=== PATIENT | female | born 1955 | race Caucasian/White ===

== ENCOUNTER 2023-04-26 19:03 | Observation (INO) ==
--- NOTE | 2023-04-26 19:12 | ED Triage Note ---
Date of Service April 26, 2023 Provider in Triage Author: Socorro Bloom History of Present Illness This patient was briefly evaluated while in triage. An abbreviated physical exam was performed. This patient is a 67-year-old Female who presents to the ED for evaluation of "My heart rate keeps going up and down on me." States symptoms intermittently for the past 3-4 days. States she notices it when she is sitting doing puzzles. Started oxygen therapy 3 weeks ago. Pt. checking on home pulse-ox. Denies chest pain or SOB Physical Exam VITALS: Vitals are noted on the nurse's note and reviewed by myself. GENERAL: This is a 67 year old female, in no acute distress, nondiaphoretic, well-developed well-nourished. SKIN: No obvious rashes, edema, erythema HEAD: Normocephalic atraumatic. EYES: Conjunctivae without injection, sclerae without icterus. NECK: No JVD. LUNGS: No retractions or accessory muscle use. MUSCULOSKELETAL: Normal gait. NEURO: Patient was alert and oriented to person place and time. No focal neurological deficits. Initial orders for labs and / or imaging were placed and patient was placed in the waiting area until a bed is available. Please see further documentation for the full ED course.
[2023-04-26 19:45] LABS: Basophils # (auto) 0.08 K/uL (0.00-0.20); Basophils % (auto) 0.7 %; Eosinophils # (auto) 0.15 K/uL (0.00-0.50); Eosinophils % (auto) 1.3 %; Hematocrit (blood only) 45.9 % (37.0-47.0); Hemoglobin 14.9 g/dl (12.0-16.0); Immature Granulocytes # (auto) 0.06 K/uL (0.01-0.20); Immature Granulocytes % (auto) 0.5 %; Lymphocytes # (auto) 2.34 K/uL (1.20-3.40); Lymphocytes % (auto) 20.5 %; Mean Corpuscular Hemoglobin 29.9 pg (25.0-34.0); Mean Corpuscular Hgb Conc 32.5 g/dL (32.0-36.0); Mean Platelet Volume 9.5 fL (9.4-12.4); Monocytes # (auto) 0.76 K/uL (0.11-0.59); Monocytes % (auto) 6.7 %; Neutrophils % (auto) 70.3 %; Platelet Count 343 K/uL (130-400); RDW Coefficient of Variation 13.2 % (11.5-14.5); RDW Standard Deviation 44.5 fL (36.4-46.3); Red Blood Count 4.99 M/uL (4.20-5.40); White Blood Count 11.39 K/ul (4.8-10.8)
[2023-04-26 19:56] LABS: Albumin Globulin Ratio 1.2 (0.9-2); Albumin Level 3.8 gm/dl (3.4-5.0); BUN Creatinine Ratio 27.7 (10-20); Bilirubin,Total 0.4 mg/dl (0.2-1.0); Calcium 9.2 mg/dl (8.6-10.3); Creatinine Clr Calc Pharmacy 112.3 ml/min; Est GFR (African American) 119.3 ml/min; Est GFR (Non-African American) 102.9 ml/min; Globulin 3.2 gm/dl (2.5-4.0); Magnesium 1.7 mg/dl (1.7-2.4); Potassium 3.8 mmol/L (3.5-5.1)
[2023-04-26 20:03] LABS: Troponin I High Sensitivity 5.5 pg/ml (0-14)
[2023-04-26 20:07] LABS: INR 0.9 (0.9-1.1); Partial Thromboplastin Time 27 Seconds (21-31); Prothrombin Time 10.3 Seconds (9.0-12.0)
[2023-04-26 20:12] LABS: Thyroid Stimulating Hormone 1.862 uIu/ml (0.300-4.500)
[2023-04-26] MEDS: LORazepam 1 MG/1 ML SYR ED Inj Use IV STA (23:35)
--- NOTE | 2023-04-27 00:28 | Emergency Department Note ---
ED Visit Note I was consulted by the Advanced Practice Provider. I personally made/approved the management plan and take responsibility for the patient management. I performed a substantive portion of the visit. This includes the aspects of: [-History/Physical] [-MDM] .
--- NOTE | 2023-04-27 00:40 | Emergency Department Note ---
History of Present Illness General Chief complaint: Arrhythmia/Palpitations Stated complaint: TACHYCARDIA Time Seen by Provider: 04/26/23 22:03 History of Present Illness This 67-year-old female with COPD chronically on oxygen presents to the ER complaining of palpitations with high and low heart rate for the past few days. She has missed multiple appointments with her other sports coach or instructor. Patient denies chest pain, dyspnea, abdominal pain, fever, chills, flulike illness. She does continue to smoke. She does not want a nicotine patch. Home Medications Medication Instructions Recorded Confirmed Type aspirin 81 mg tablet,delayed 81 mg PO DAILY 04/08/23 04/27/23 History release atorvastatin 20 mg tablet 20 mg PO DAILY 04/08/23 04/27/23 History diltiazem HCl 120 mg 120 mg PO DAILY 04/08/23 04/27/23 History capsule,extended release 24 hr empagliflozin 25 mg tablet 25 mg PO DAILY 04/08/23 04/27/23 History (Jardiance) fluticasone fur. 200 mcg-umeclid 1 inh inhalation QPM 04/08/23 04/27/23 History 62.5 mcg-vilant 25 mcg inhalat.powder (Trelegy Ellipta) fluticasone propionate 50 1 spray intranasal DAILY 04/08/23 04/27/23 History mcg/actuation nasal spray,suspension ipratropium bromide 0.02 % 2.5 ml inhalation Q4H PRN 04/08/23 04/27/23 History solution for inhalation Shortness Of Breath Or Wheezing lisinopril 5 mg tablet 5 mg PO DAILY 04/08/23 04/27/23 History metformin 500 mg tablet,extended 1,000 mg PO BID 04/08/23 04/27/23 History release 24 hr montelukast 10 mg tablet 10 mg PO DAILY 04/08/23 04/27/23 History ipratropium 0.5 mg-albuterol 3 mg 3 ml NEB Q4 PRN Shortness Of 04/27/23 04/27/23 History (2.5 mg base)/3 mL nebulization Breath Or Wheezing soln methylprednisolone 4 mg tablets in 0 mg PO .TAPER UD 04/27/23 04/27/23 History a dose pack Allergies Allergy/AdvReac Type Severity Reaction Status Date / Time No Known Allergies Allergy Mild Verified 04/27/23 00:23 Past Med/Surg History Medical History HLD (hyperlipidemia) Tobacco abuse COPD (chronic obstructive pulmonary disease) T2DM (type 2 diabetes mellitus) Surgical History Hx of cataract extraction Family History Other Diabetes Social History Smoking Status: Current every day smoker Tobacco Type: Cigarettes Second Hand Exposure: No; Do You Dip or Chew Tobacco: No; Hx Alcohol Use: No Hx Substance Use: No Preferred Language: Finnish Communication Ability: Effective 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 Beliefs That Will Affect Care: None marital status: Single Current Living Situation: Family Feels Safe at Home: Yes Assistive Devices: Walker Review of Systems A total of 10 systems reviewed and were otherwise negative Physical Exam Vital Signs Vital Signs - 24 hr 04/26/23 19:10 04/26/23 22:30 04/26/23 22:30 Temperature 36.2 C L Temperature Source Temporal Artery Scan Pulse Rate 97 H Pulse Rate [Apical] 85 Respiratory Rate 20 18 Respiratory Effort / Characteristics Non-Labored Spontaneous Non-Labored Respiratory Depth Normal Normal Respiratory Pattern Regular Blood Pressure 127/82 Blood Pressure [Right Arm] 136/62 Blood Pressure Mean 97 Blood Pressure Mean [Right Arm] 86 Pulse Oximetry 95 95 95 Oxygen Delivery Method Room Air Nasal Cannula Nasal Cannula Oxygen Flow Rate 3 4 Sepsis Recent Fever Within 48 Hours No Sepsis New/Unexplained Change in Mental Status No Sepsis Action Taken by Nursing No Action Required 04/26/23 22:54 Temperature Temperature Source Pulse Rate 88 Pulse Rate [Apical] Respiratory Rate Respiratory Effort / Characteristics Respiratory Depth Respiratory Pattern Blood Pressure Blood Pressure [Right Arm] Blood Pressure Mean Blood Pressure Mean [Right Arm] Pulse Oximetry Oxygen Delivery Method Oxygen Flow Rate Sepsis Recent Fever Within 48 Hours Sepsis New/Unexplained Change in Mental Status Sepsis Action Taken by Nursing VITALS: Vitals are noted on the nurse's note and reviewed by myself. Vital signs stable. GENERAL: Pleasant female chronically on oxygen, in no acute distress, nondiaphoretic, well-developed well-nourished. SKIN: Capillary reflex less than 2 seconds. HEENT: Normocephalic. PERRLA. EOMI. Nares patent. Mucous membranes moist. Neck is supple without nuchal rigidity. HEART: Regular rate and rhythm with frequent PVCs LUNGS: Clear to auscultation bilaterally without wheezes, rales or rhonchi. No retractions or accessory muscle use. ABDOMEN: Positive bowel sounds x 4. Normal tympanic percussion. Soft, nontender, without masses or organomegaly. Abraham sign negative. No guarding or rebound tenderness. no CVA tenderness MUSCULOSKELETAL: No gross musculoskeletal defects. NEURO: Patient was alert and oriented to person place and time. No focal neurological deficits. Course Administered Medications Discontinued Medications Lorazepam (Lorazepam 1 Mg/1 Ml Syr Ed Inj Use) 1 mg IV ONE STA Stop: 04/26/23 23:24 Last Admin: 04/26/23 23:35 Dose: 1 mg Documented By: REAGAN Medical Decision Making Medical Records Attestation: I reviewed the patient's medical records. Home Medications Current Medication List: was personally reviewed by me Laboratory Data Attestation: I reviewed the patient's lab results. 04/26/23 19:20 04/26/23 19:20 Lab Results 04/26/23 04/26/23 Range/Units 19:20 23:07 WBC 11.39 H (4.8-10.8) K/ul RBC 4.99 (4.20-5.40) M/uL Hgb 14.9 (12.0-16.0) g/dl Hct 45.9 (37.0-47.0) % MCV 92.0 (80.0-100.0) fL MCH 29.9 (25.0-34.0) pg MCHC 32.5 (32.0-36.0) g/dL RDW Std Deviation 44.5 (36.4-46.3) fL RDW Coeff of Janel 13.2 (11.5-14.5) % Plt Count 343 (130-400) K/uL MPV 9.5 (9.4-12.4) fL Immature Gran % (Auto) 0.5 % Neut % (Auto) 70.3 % Lymph % (Auto) 20.5 % [place] % (Auto) 6.7 % Eos % (Auto) 1.3 % Baso % (Auto) 0.7 % Neut # (Auto) 8.00 H (1.40-6.50) K/uL Lymph # (Auto) 2.34 (1.20-3.40) K/uL [place] # (Auto) 0.76 H (0.11-0.59) K/uL Eos # (Auto) 0.15 (0.00-0.50) K/uL Baso # (Auto) 0.08 (0.00-0.20) K/uL Immature Gran # (Auto) 0.06 (0.01-0.20) K/uL PT 10.3 (9.0-12.0) Seconds INR 0.9 (0.9-1.1) APTT 27 (21-31) Seconds PTT Ratio 1.0 Sodium 137 (136-145) mmol/L Potassium 3.8 (3.5-5.1) mmol/L Chloride 101 (98-107) mmol/L Carbon Dioxide 30 (21-32) mmol/L Anion Gap 6 (3-11) BUN 13 (6-23) mg/dl Creatinine 0.47 L (0.6-1.2) mg/dl Est Cr Clr Drug Dosing 112.3 ml/min Est GFR ( Amer) 119.3 ml/min Est GFR (Non-Af Amer) 102.9 ml/min BUN/Creatinine Ratio 27.7 H (10-20) Glucose 162 H (70-99(Fasting)) mg/dl Calcium 9.2 (8.6-10.3) mg/dl Magnesium 1.7 (1.7-2.4) mg/dl Total Bilirubin 0.4 (0.2-1.0) mg/dl AST 12 L (13-39) U/L ALT 17 (7-52) U/L Alkaline Phosphatase 73 (34-104) U/L Troponin I High Sens 5.5 6.6 (0-14) pg/ml Total Protein 7.0 (6.0-8.3) gm/dl Albumin 3.8 (3.4-5.0) gm/dl Globulin 3.2 (2.5-4.0) gm/dl Albumin/Globulin Ratio 1.2 (0.9-2) TSH 1.862 (0.300-4.500) uIu/ml Imaging Data Attestation: I personally reviewed and interpreted this imaging study as follows: MDM Narrative Prior records/ancillary studies reviewed. Triage Nursing notes reviewed. Additional history obtained from family. The patient's history was concerning for palpitations. Differential diagnosis: Etiologies such as premature contractions, electrolyte abnormality, cardiac dysrhythmia, thyroid dysfunction, pulmonary embolism, infection, gastrointestinal, as well as others were entertained. Physical examination: Benign as above. ER treatment provided: Patient was observed Ativan was ordered On reassessment the patient felt better. Diagnostic interpretation by me: An order was placed for continuous cardiac monitoring. The monitor shows a rate of 40-1 20 with a sinus rhythm per my interpretation. The electrocardiogram was ordered for palpitaions ECG: Ordered for palpitations EKG: Poor baseline, normal sinus, frequent PVCs, rate of 84. Impression normal sinus rhythm with frequent PVCs poor baseline independently interpreted by myself The labs Independently Interpreted by myself revealed 2 negative troponins Imaging studies: Chest x-ray with no acute consolidation, pneumothorax or free air per my independent or potation Consultation: A consultation was placed with the hospitalist. The case was discussed and diagnostics were reviewed. The patient was evaluated in the ER for further treatment. This appears to be consistent with frequent PVCs with palpitations with bradycardia and tachycardia. Multiple leads were reviewed. No signs of heart block. Patient's heart rate ranged between the 50s up to the 120s. She had frequent bigeminy on the monitor. Patient is agreeable treatment plan of admission. Patient adamantly refuses the CTA for rule out PE. Patient verbalized understanding that without doing the CAT scan I cannot rule out a PE. She verbalized understanding of this. Medicine was consulted and case was discussed. She will be admitted to the medical service for further evaluation and workup. By the evaluation outlined above emergent etiologies such as electrolyte abnormality, thyroid dysfunction infection, as well as others were deemed relatively unlikely. The pt informed about the findings as listed above. All questions were answered and pleased with the treatment. The chart was completed utilizing [employer] Speech voice recognition software. Grammatical errors, random word insertions, pronoun errors, and incomplete sentences are an occassional consequence of this system due to software limitations, ambient noise, and hardware issues. Any formal questions or concerns about the content, text, or information contained within the body of this dictation should be directly addressed to the physician office assistant receptionist for clarification. Impression & Plan Heart palpitations, Frequent PVCs Discharge Plan Visit Data Chief Complaint: Arrhythmia/Palpitations Stated Complaint: TACHYCARDIA ED Provider: Adele Krueger ED Midlevel Provider: Jocelyne Ross Discharge Problem: Heart palpitations, Frequent PVCs Patient Disposition: Admitted As Inpatient Condition: Fair Forms Stand Alone Forms: My [facility] Prescriptions Prescriptions: No Action atorvastatin 20 mg tablet 20 mg PO DAILY diltiazem HCl 120 mg capsule,extended release 24hr 120 mg PO DAILY montelukast 10 mg tablet 10 mg PO DAILY fluticasone propionate 50 mcg/actuation spray,suspension 1 spray INTRANASAL DAILY metformin 500 mg tablet extended release 24 hr 1,000 mg PO BID aspirin 81 mg Tablet,Delayed Release (Dr/Ec) 81 mg PO DAILY lisinopril 5 mg tablet 5 mg PO DAILY Rx Instructions: does not remember taking this anymore/ last filled in september. ipratropium bromide 0.02 % solution 2.5 ml inhalation Q4H PRN (Reason: Shortness Of Breath Or Wheezing) Jardiance 25 mg tablet 25 mg PO DAILY Trelegy Ellipta 200-62.5-25 mcg blister with device 1 inh INHALATION QPM methylprednisolone 4 mg tablets,dose pack 0 mg PO .TAPER UD Rx Instructions: filled 04/20/23 ipratropium-albuterol 0.5 mg-3 mg(2.5 mg base)/3 mL solution for nebulization 3 ml NEB Q4 PRN (Reason: Shortness Of Breath Or Wheezing) Referrals Referrals: Riri England DO [Primary Care Provider] -
--- NOTE | 2023-04-27 01:31 | History & Physical Report ---
Date of Service April 27, 2023 Assessment & Plan (1) Heart palpitations: Plan: 67-year-old female with past med significant for COPD, type 2 diabetes, hyperlipidemia who was recently in the hospital with bilateral pneumonia ,COPD exacerbation influenza A and acute hypoxemic respiratory failure and on discharge requiring 4 L oxygen at rest and 6 L on Exertion comes because of feeling her heart rate is going up and down. She did not feel any dizziness with it. Denies any headache. Has cough. No fevers. Appetite is okay. Currently no chest pain or shortness of breath. No nausea no abdominal pain. Normal bowel and bladder movements. Ambulates okay. Lives with her sister. Heart palpitations States heart rates going up and down EKG shows frequent PVCs Mag is 1.7 will give 1 g of IV magnesium 2 sets of troponin negative We will follow serial enzymes and echo Telemetry monitoring Patient is on diltiazem which will be continued Patient states she does not know what medication she is taking Consult cardiology in a.m. for further recommendations Diabetes Hold home p.o. medications Sliding scale Will monitor Hypertension diltiazem seems not taking lisinopril will monitor History of COPD Continue home inhalers DVT prophylaxis Lovenox Disposition Observation telemetry Full code History of Present Illness Chief Complaint: Asthma/palpitations Primary Care Provider: Riri England DO 67-year-old female with past med significant for COPD, type 2 diabetes, hyperlipidemia who was recently in the hospital with bilateral pneumonia ,COPD exacerbation influenza A and acute hypoxemic respiratory failure and on discharge requiring 4 L oxygen at rest and 6 L on Exertion comes because of feeling her heart rate is going up and down. She did not feel any dizziness with it. Denies any headache. Has cough. No fevers. Appetite is okay. Currently no chest pain or shortness of breath. No nausea no abdominal pain. Normal bowel and bladder movements. Ambulates okay. Lives with her sister. Past medical history. As mentioned above Past surgical history. Cataracts extraction. Family significant for diabetes. Social history. She is cut back on smoking currently smoking 1 cigarette daily. Lives with her sister. Allergies Allergy/AdvReac Type Severity Reaction Status Date / Time No Known Allergies Allergy Mild Verified 04/27/23 00:23 Home Medications Medication Instructions Recorded Confirmed Type aspirin 81 mg tablet,delayed 81 mg PO DAILY 04/08/23 04/27/23 History release atorvastatin 20 mg tablet 20 mg PO DAILY 04/08/23 04/27/23 History diltiazem HCl 120 mg 120 mg PO DAILY 04/08/23 04/27/23 History capsule,extended release 24 hr empagliflozin 25 mg tablet 25 mg PO DAILY 04/08/23 04/27/23 History (Jardiance) fluticasone fur. 200 mcg-umeclid 1 inh inhalation QPM 04/08/23 04/27/23 History 62.5 mcg-vilant 25 mcg inhalat.powder (Trelegy Ellipta) fluticasone propionate 50 1 spray intranasal DAILY 04/08/23 04/27/23 History mcg/actuation nasal spray,suspension ipratropium bromide 0.02 % 2.5 ml inhalation Q4H PRN 04/08/23 04/27/23 History solution for inhalation Shortness Of Breath Or Wheezing lisinopril 5 mg tablet 5 mg PO DAILY 04/08/23 04/27/23 History metformin 500 mg tablet,extended 1,000 mg PO BID 04/08/23 04/27/23 History release 24 hr montelukast 10 mg tablet 10 mg PO DAILY 04/08/23 04/27/23 History ipratropium 0.5 mg-albuterol 3 mg 3 ml NEB Q4 PRN Shortness Of 04/27/23 04/27/23 History (2.5 mg base)/3 mL nebulization Breath Or Wheezing soln methylprednisolone 4 mg tablets in 0 mg PO .TAPER UD 04/27/23 04/27/23 History a dose pack Past Med/Surg History Medical History HLD (hyperlipidemia) Tobacco abuse COPD (chronic obstructive pulmonary disease) T2DM (type 2 diabetes mellitus) Surgical History Hx of cataract extraction Family History Other Diabetes Social History Smoking Status: Current every day smoker Tobacco Type: Cigarettes Second Hand Exposure: Yes; Do You Dip or Chew Tobacco: No; Hx Alcohol Use: No Hx Substance Use: No Preferred Language: Burundian Communication Ability: Effective Tearoom Host/Hostess Required: No Beliefs That Will Affect Care: None marital status: Single Current Living Situation: Family Other Information That Helps Us Care for You: No Feels Safe at Home: Yes Safety Concerns: Feels Safe At This Time Assistive Devices: Denture - Upper and Denture - Lower Review of Systems Review of Systems: All systems reviewed & are unremarkable except as noted in HPI & below Physical Exam Physical Exam: General- Not in acute distress Head- atraumatic Eyes- PERRL. ENT- oropharynx clear Neck- supple, no JVD. Lungs- diminished b/l breath sounds, no wheezing or crackles. Heart- regular rhythm; no murmur, no gallop. Abdomen- normal bowel sounds, soft, nontender, no distension. Extremities- no pretibial edema, no erythema seen. Neuro- alert, oriented PERRL, no facial palsy; no dysarthria; moves extremities. Skin- warm & dry Results & Data Results & Data Vital Signs (Past 12 Hours) Vital Signs Temp Pulse Pulse Resp BP BP Pulse Ox 04/27/23 01:14 80 20 136/75 94 04/26/23 22:54 88 04/26/23 22:30 85 18 136/62 95 04/26/23 22:30 95 04/26/23 19:10 36.2 C L 97 H 20 127/82 95 O2 Del Method O2 Flow Rate 04/27/23 01:14 Nasal Cannula 4 04/26/23 22:54 04/26/23 22:30 Nasal Cannula 4 04/26/23 22:30 Nasal Cannula 3 04/26/23 19:10 Room Air Diagnostic Findings Laboratory Results WBC 11.39 K/ul (4.8-10.8) H 04/26/23 19:20 RBC 4.99 M/uL (4.20-5.40) 04/26/23 19:20 Hgb 14.9 g/dl (12.0-16.0) 04/26/23 19:20 Hct 45.9 % (37.0-47.0) 04/26/23 19:20 MCV 92.0 fL (80.0-100.0) 04/26/23 19:20 MCH 29.9 pg (25.0-34.0) 04/26/23 19:20 MCHC 32.5 g/dL (32.0-36.0) 04/26/23 19:20 RDW Std Deviation 44.5 fL (36.4-46.3) 04/26/23 19:20 RDW Coeff of Janel 13.2 % (11.5-14.5) 04/26/23 19:20 Plt Count 343 K/uL (130-400) 04/26/23 19:20 MPV 9.5 fL (9.4-12.4) 04/26/23 19:20 Immature Gran % (Auto) 0.5 % 04/26/23 19:20 Neut % (Auto) 70.3 % 04/26/23 19:20 Lymph % (Auto) 20.5 % 04/26/23 19:20 [place] % (Auto) 6.7 % 04/26/23 19:20 Eos % (Auto) 1.3 % 04/26/23 19:20 Baso % (Auto) 0.7 % 04/26/23 19:20 Neut # (Auto) 8.00 K/uL (1.40-6.50) H 04/26/23 19:20 Lymph # (Auto) 2.34 K/uL (1.20-3.40) 04/26/23 19:20 Will # (Auto) 0.76 K/uL (0.11-0.59) H 04/26/23 19:20 Eos # (Auto) 0.15 K/uL (0.00-0.50) 04/26/23 19:20 Baso # (Auto) 0.08 K/uL (0.00-0.20) 04/26/23 19:20 Immature Gran # (Auto) 0.06 K/uL (0.01-0.20) 04/26/23 19:20 PT 10.3 Seconds (9.0-12.0) 04/26/23 19:20 INR 0.9 (0.9-1.1) 04/26/23 19:20 APTT 27 Seconds (21-31) 04/26/23 19:20 PTT Ratio 1.0 04/26/23 19:20 Sodium 137 mmol/L (136-145) 04/26/23 19:20 Potassium 3.8 mmol/L (3.5-5.1) 04/26/23 19:20 Chloride 101 mmol/L (98-107) 04/26/23 19:20 Carbon Dioxide 30 mmol/L (21-32) 04/26/23 19:20 Anion Gap 6 (3-11) 04/26/23 19:20 BUN 13 mg/dl (6-23) 04/26/23 19:20 Creatinine 0.47 mg/dl (0.6-1.2) L 04/26/23 19:20 Est Cr Clr Drug Dosing 112.3 ml/min 04/26/23 19:20 Est GFR ( Amer) 119.3 ml/min 04/26/23 19:20 Est GFR (Non-Af Amer) 102.9 ml/min 04/26/23 19:20 BUN/Creatinine Ratio 27.7 (10-20) H 04/26/23 19:20 Glucose 162 mg/dl (70-99(Fasting)) H 04/26/23 19:20 Calcium 9.2 mg/dl (8.6-10.3) 04/26/23 19:20 Magnesium 1.7 mg/dl (1.7-2.4) 04/26/23 19:20 Total Bilirubin 0.4 mg/dl (0.2-1.0) 04/26/23 19:20 AST 12 U/L (13-39) L 04/26/23 19:20 ALT 17 U/L (7-52) 04/26/23 19:20 Alkaline Phosphatase 73 U/L (34-104) 04/26/23 19:20 Troponin I High Sens 6.6 pg/ml (0-14) 04/26/23 23:07 Total Protein 7.0 gm/dl (6.0-8.3) 04/26/23 19:20 Albumin 3.8 gm/dl (3.4-5.0) 04/26/23 19:20 Globulin 3.2 gm/dl (2.5-4.0) 04/26/23 19:20 Albumin/Globulin Ratio 1.2 (0.9-2) 04/26/23 19:20 TSH 1.862 uIu/ml (0.300-4.500) 04/26/23 19:20 ECG Additional Comments: ECG. Sinus rhythm with frequent PVCs with rate of 91. Nonspecific ST abnormalities. Code Status & VTE Plan VTE Prophylaxis Plan VTE Prophylaxis will be ordered: Yes
[2023-04-27] MEDS ORDERED: GLUCAGON FOR INJ 1 MG VIAL SQ PRN (01:36)
[2023-04-27] MEDS ORDERED: GLUCOSE 10 TAB/TUBE PO PRN (01:36)
[2023-04-27] MEDS ORDERED: CARBOHYDRATES FOR HYPOGLYCEMIA PO PRN (01:36)
[2023-04-27] MEDS ORDERED: IPRATROPIUM BROMIDE NEB SOLN 0.02% 0.5MG/2.5ML VIAL INH PRN (01:36)
[2023-04-27] MEDS ORDERED: GLUCOSE 40% GEL 15 GM TUBE PO PRN (01:36)
[2023-04-27] MEDS ORDERED: DEXTROSE 50% 50 ML SYRINGE IV PRN (01:36)
[2023-04-27] MEDS ORDERED: NITROGLYCERIN SL 0.4 MG/TAB TAB SL PRN (01:36)
[2023-04-27] MEDS ORDERED: ALBUT/IPRATROP 3MG/0.5MG NEB 3 ML VIAL NEB PRN (01:36)
[2023-04-27] MEDS: ACETAMINOPHEN 325 MG TAB PO PRN (02:39)
[2023-04-27] MEDS: MAGNESIUM SULFATE / D5W 1 GM/100 ML BAG IV ONE (02:39)
[2023-04-27 06:11] LABS: Basophils # (auto) 0.08 K/uL (0.00-0.20); Basophils % (auto) 0.8 %; Eosinophils # (auto) 0.18 K/uL (0.00-0.50); Eosinophils % (auto) 1.9 %; Hematocrit (blood only) 43.2 % (37.0-47.0); Hemoglobin 13.9 g/dl (12.0-16.0); Immature Granulocytes # (auto) 0.03 K/uL (0.01-0.20); Immature Granulocytes % (auto) 0.3 %; Lymphocytes % (auto) 24.4 %; Mean Corpuscular Hgb Conc 32.2 g/dL (32.0-36.0); Mean Corpuscular Volume 93.1 fL (80.0-100.0); Mean Platelet Volume 9.7 fL (9.4-12.4); Monocytes # (auto) 0.75 K/uL (0.11-0.59); Monocytes % (auto) 7.9 %; Neutrophils % (auto) 64.7 %; Platelet Count 312 K/uL (130-400); RDW Coefficient of Variation 13.1 % (11.5-14.5); RDW Standard Deviation 44.5 fL (36.4-46.3); Red Blood Count 4.64 M/uL (4.20-5.40); White Blood Count 9.44 K/ul (4.8-10.8)
[2023-04-27] MEDS: ENOXAPARIN INJ 40 MG/0.4 ML SYR SQ SCH (06:17)
[2023-04-27] MEDS: INSULIN ASPART PER UNIT CHARGE SC SCH ×2 (06:19→18:01)
[2023-04-27 06:23] LABS: BUN Creatinine Ratio 23.3 (10-20); Calcium 8.9 mg/dl (8.6-10.3); Creatinine Clr Calc Pharmacy 121.4 ml/min; Est GFR (African American) 122.8 ml/min; Magnesium 2.1 mg/dl (1.7-2.4); Potassium 3.7 mmol/L (3.5-5.1)
[2023-04-27 06:29] LABS: Troponin I High Sensitivity 7.1 pg/ml (0-14)
--- NOTE | 2023-04-27 06:57 | XRay Report ---
XR chest 1V portable CLINICAL HISTORY: Dysrhythmia TECHNIQUE: Single frontal radiograph of the chest was obtained. Comparison: Comparison is made to chest radiograph 04/08/2023 FINDINGS: No lines and tubes are seen. Calcified aortic knob is seen. Faint left lower lobe airspace opacity is seen. No evidence of pleural effusion or pneumothorax. IMPRESSION: Faint left lower lung airspace opacity, new from prior exam. This may represent atelectasis, pneumoni a, and/or aspiration. ACT 112: Negative or not required by law. Electronically signed by: Ralph Guzman M.D. 04/27/2023 6:56 AM
[2023-04-27 07:08] LABS: Estimated Average Glucose 194 mg/dl; Hemoglobin A1C 8.4 % (4.5-5.6)
--- NOTE | 2023-04-27 07:59 | Cardiology Consultation ---
Date of Consultation April 27, 2023 Assessment & Plan (1) Frequent PVCs: Plan IMPRESSION: 67 year old female with symptoms concerning for irregular HR and SOB. Frequent PVCs noted on EKG and Tele. Overall improvement in burden with electrolyte replacement. Preliminary read on echo showed a preserved LVEF without WMA. DSE 06/2022 nonischemic. PLAN: Frequent PVCs: Continue diltiazem 120 mg daily Given underlying pulmonary disease will hold off on beta carmen therapy at this time. Recommend maintaining a K goal of 4.0 and mag of 2.0. +20 meq of KCL given this am for a K of 3.7. Add daily mag supplement. Okay to eat from a cardiology standpoint. Consider outpatient zio for assessment of PVC burden. Case discussed with Dr. Garber. Further recommendations pending his assessment/Echo results. I spent a total of 40 minutes on the date of service in preparation, delivery, and documentation of the care provided to the patient excluding any time spent in the performance of separately billed services. FLORENCE Pretty Department of Cardiology, [facility] This chart was completed in part utilizing Speech Voice Recognition Software. Grammatical errors, random word insertions, pronoun errors, and incomplete sente nces are an occasional consequence of this system due to software limitations, ambient noise, and hardware issues. Any formal questions or concerns about the content, text, or information contained within the body of this dictation should be directly addressed to the provider for clarification. Supervising Physician Co-Signing Physician Notes I have reviewed the advance practitioner's documentation, and I agree with, and take responsibility for the plan of care. 67-year-old female presented to the emergency department with palpitations. Telemetry revealing symptomatic premature ventricular complexes. Patient reports "my heart rate was all over the place". Note heart rate ranging from 56 bpm up to 106 bpm. No chest discomfort or heaviness. Reports chronic shortness of breath related to COPD. Wearing continuous oxygen supplementation, 4 L. Admits to occasional cigarette use. Denies orthopnea, PND, or lower extremity edema. PE: VSS. Gen: NAD, AAO x3. Heart: Regular rhythm with occasional ectopy. Normal S1-S2. No murmur. Lungs: Diminished breath sounds with expiratory wheezing bilaterally. Extremities: No edema. A/P: 67-year-old female with symptomatic PVCs. At least moderate PVC burden per review of telemetry. Echocardiogram demonstrates preserved LV systolic function. Symptoms somewhat improved this morning with magnesium supplementation. Recommend titration of diltiazem to 180 mg daily. Patient is not a good candidate for beta-carmen therapy due to severe oxygen dependent COPD with active wheeze. Add daily magnesium supplementation. Repeat basic metabolic panel and magnesium level in approximately 1 week postdischarge. No further inpatient cardiac testing or intervention recommended at this time. Outpatient cardiology follow-up in 4-6 weeks. Consider hall monitor to assess PVC burden at that time. History of Present Illness Reason for Consultation: Palpitations/arrhythmia Requesting Physician: [facility] Attending Physician: Kostas Montes MD History of Present Illness 67-year-old female who presented to [facility] emergency department last evening due to irregular heart rates on her pulse ox and shortness of breath. Recent admission to [facility] from 04/08/2023 to 04/11/2023 due to acute hypoxic respiratory failure secondary to bilateral pneumonia, COPD exacerbation, and influenza A. During hospitalization she was treated with Tamiflu as well as DuoNebs, IV steroids, and antibiotics. She was discharged home on 4-6 L of oxygen. Followed up with [facility] pulmonary medicine on 04/20/2023 feeling well. He presented to [facility] emergency department last evening variable heart rates on her pulse ox while she was checking her O2 due to dyspnea. EKG in the ED showed frequent PVCs. She was asymptomatic and did not have palpitations. Electrolytes were supplemented. Tele: SR with frequent PVCs 80s, venkata noted EKG: SR with PVCs ~0500, SR without PVCs ~0800 Upon entrance into the room patient resting in bed. She remains asymptotic with her PVCs. Telemetry has shown a reduction in overall burden since electrolytes have been supplemented. No chest pain. SOB at baseline- requires supplemental o2 (chronic). No dizziness, syncope or near syncope. No orthopnea, PND, or increased lower extremity edema. No fever, chills, cough, hematochezia, melena, or hemoptysis. Increased appetite- requesting a breakfast tray. Outpatient cardiology medications include: Atorvastatin 20 mg daily Diltiazem 120 mg daily Jardiance 25 mg daily Lisinopril 5 mg daily Aspirin 81 mg daily Primary outpatient liquor merchant: Formerly Dr. Evans, most recently evaluated by Leigh Ann Martin PA-C Past medical history: Hypertension Dyslipidemia Type 2 diabetes Chronic dyspnea with chronic respiratory failure, on supplemental o2 -Nonischemic dobutamine stress echo 06/2022 Chronic tobacco use Allergies Allergy/AdvReac Type Severity Reaction Status Date / Time No Known Allergies Allergy Mild Verified 04/27/23 00:23 Home Medications Medication Instructions Recorded Confirmed Type aspirin 81 mg tablet,delayed 81 mg PO DAILY 04/08/23 04/27/23 History release atorvastatin 20 mg tablet 20 mg PO DAILY 04/08/23 04/27/23 History diltiazem HCl 120 mg 120 mg PO DAILY 04/08/23 04/27/23 History capsule,extended release 24 hr empagliflozin 25 mg tablet 25 mg PO DAILY 04/08/23 04/27/23 History (Jardiance) fluticasone fur. 200 mcg-umeclid 1 inh inhalation QPM 04/08/23 04/27/23 History 62.5 mcg-vilant 25 mcg inhalat.powder (Trelegy Ellipta) fluticasone propionate 50 1 spray intranasal DAILY 04/08/23 04/27/23 History mcg/actuation nasal spray,suspension ipratropium bromide 0.02 % 2.5 ml inhalation Q4H PRN 04/08/23 04/27/23 History solution for inhalation Shortness Of Breath Or Wheezing lisinopril 5 mg tablet 5 mg PO DAILY 04/08/23 04/27/23 History metformin 500 mg tablet,extended 1,000 mg PO BID 04/08/23 04/27/23 History release 24 hr montelukast 10 mg tablet 10 mg PO DAILY 04/08/23 04/27/23 History ipratropium 0.5 mg-albuterol 3 mg 3 ml NEB Q4 PRN Shortness Of 04/27/23 04/27/23 History (2.5 mg base)/3 mL nebulization Breath Or Wheezing soln methylprednisolone 4 mg tablets in 0 mg PO .TAPER UD 04/27/23 04/27/23 History a dose pack Patient History Medical History HLD (hyperlipidemia) Tobacco abuse COPD (chronic obstructive pulmonary disease) T2DM (type 2 diabetes mellitus) Surgical History Hx of cataract extraction Family History Other Diabetes Social History Smoking Status: Current every day smoker Tobacco Type: Cigarettes Second Hand Exposure: Yes; Do You Dip or Chew Tobacco: No; Hx Alcohol Use: No Hx Substance Use: No Preferred Language: Macedonian Communication Ability: Effective Media Aid Required: No Beliefs That Will Affect Care: None marital status: Single Current Living Situation: Family Other Information That Helps Us Care for You: No Feels Safe at Home: Yes Safety Concerns: Feels Safe At This Time Assistive Devices: Denture - Upper and Denture - Lower Review of Systems Review of Systems: All systems reviewed & are unremarkable except as noted in HPI & below Physical Exam Constitutional: WD/WN, vitals as above no acute distress Neck: normal visual inspection and trachea midline Respiratory: normal respiratory effort; no respiratory distress A uscultation: no rales, no rhonchi and no wheezes Cardiovascular: Rate/Rhythm: regular rate and regular rhythm Heart Sounds: normal S2; no murmur Vessels: no JVD Extremities: no edema Gastrointestinal (Abdomen): normal bowel sounds, soft, nontender, no hepatosplenomegaly Skin: no rashes, warm and dry Neurologic: PERRL, EOMI, accommodation nl, no face palsy, no dysarthria Psychiatric: A+Ox3, euthymic affect Results & Data Vital Signs (Past 12 Hours) Vital Signs Temp Pulse Pulse Resp BP Pulse Ox Pulse Ox 04/27/23 06:04 04/27/23 05:34 37.1 C 77 18 155/71 H 94 04/27/23 03:34 95 04/27/23 03:34 79 18 133/76 95 04/27/23 01:28 83 04/27/23 01:14 80 20 136/75 94 04/26/23 22:54 88 04/26/23 22:30 85 18 136/62 95 04/26/23 22:30 95 O2 Del Method O2 Del Method O2 Flow Rate O2 Flow Rate 04/27/23 06:04 Nasal Cannula 4 04/27/23 05:34 Nasal Cannula 4 04/27/23 03:34 Nasal Cannula 4 04/27/23 03:34 Nasal Cannula 4 04/27/23 01:28 04/27/23 01:14 Nasal Cannula 4 04/26/23 22:54 04/26/23 22:30 Nasal Cannula 4 04/26/23 22:30 Nasal Cannula 3 Laboratory Results Cardiac Enzymes 04/26/23 04/26/23 04/27/23 Range/Units 19:20 23:07 05:51 AST 12 L (13-39) U/L Troponin I High Sens 5.5 6.6 7.1 (0-14) pg/ml Coagulation 04/26/23 Range/Units 19:20 PT 10.3 (9.0-12.0) Seconds APTT 27 (21-31) Seconds CBC 04/26/23 04/27/23 Range/Units 19:20 05:51 WBC 11.39 H 9.44 (4.8-10.8) K/ul RBC 4.99 4.64 (4.20-5.40) M/uL Hgb 14.9 13.9 (12.0-16.0) g/dl Hct 45.9 43.2 (37.0-47.0) % Plt Count 343 312 (130-400) K/uL Neut # (Auto) 8.00 H 6.10 (1.40-6.50) K/uL Lymph # (Auto) 2.34 2.30 (1.20-3.40) K/uL [place] # (Auto) 0.76 H 0.75 H (0.11-0.59) K/uL Eos # (Auto) 0.15 0.18 (0.00-0.50) K/uL Baso # (Auto) 0.08 0.08 (0.00-0.20) K/uL Comprehensive Metabolic Panel 04/26/23 04/27/23 Range/Units 19:20 05:51 Sodium 137 139 (136-145) mmol/L Potassium 3.8 3.7 (3.5-5.1) mmol/L Chloride 101 99 (98-107) mmol/L Carbon Dioxide 30 34 H (21-32) mmol/L BUN 13 10 (6-23) mg/dl Creatinine 0.47 L 0.43 L (0.6-1.2) mg/dl Glucose 162 H 165 H (70-99(Fasting)) mg/dl Calcium 9.2 8.9 (8.6-10.3) mg/dl AST 12 L (13-39) U/L ALT 17 (7-52) U/L Alkaline Phosphatase 73 (34-104) U/L Total Protein 7.0 (6.0-8.3) gm/dl Albumin 3.8 (3.4-5.0) gm/dl Intake and Output 04/26/23 04/27/23 04/27/23 22:59 06:59 14:59 Intake Total 100 / 100 Balance 100 / 100 Intake: IV 100 / 100 Magnesium Sulfate / D5w 1 gm In 100 / 100 100 ml @ 50 mls/hr IV ONE ONE Rx#:[id number] Oral 0 / 0 Other: # Unmeasured Voids 0 Weight 69 kg 67.3 kg Weight Measurement Method Built in [facility] Diagnostic Findings Echo 04/27/2023 Finalized report pending* DSE 06/2022 Stress echo negative for inducible ischemia LVEF 55 to 59% No significant valvular disease
[2023-04-27] MEDS: ASPIRIN 81 MG ECTAB PO SCH (08:54)
[2023-04-27] MEDS: ATORVASTATIN 20 MG TAB PO SCH (08:55)
[2023-04-27] MEDS: dilTIAZem HCL 120 MG CAPCR PO SCH (08:55)
[2023-04-27] MEDS: MONTELUKAST SODIUM 10 MG TABLET PO SCH (08:56)
[2023-04-27] MEDS: FLUTICASONE FUROATE 200MCG 14 PUFFS/INHALER INH SCH (08:56)
[2023-04-27] MEDS: FLUTICASONE PROPIONATE NA SPR 16 GM BTL SCH (08:58)
[2023-04-27] MEDS: UMECLIDINIUM/VILANTEROL 62.5/25MCG 7 PUFFS/INHALER INH SCH (08:58)
[2023-04-27] MEDS ORDERED: lisinopril 5 MG TAB PO SCH (09:00)
[2023-04-27] MEDS: NICOTINE 21 MG/24 HR TDSY TD SCH (09:44)
[2023-04-27] MEDS: POTASSIUM CHLORIDE CRTAB 20 MEQ TABCR PO STA (09:44)
[2023-04-27] MEDS: METOPROLOL SUCC 25MG EXT REL TAB PO SCH (11:20)
--- NOTE | 2023-04-27 13:12 | Communication Note ---
Date of Service: April 27, 2023 Patient seen and examined at bedside. She is comfortably lying in the bed; not in distress. She reports episodes of the palpitations since her dischage from her hospitalization. Telemetry shows sinus rhythm with PVCs and PACs. Echo shows EF of 55 to 60% with grade 1 diastolic dysfunction. Cardiology recommends to continue diltiazem 120 mg once daily. On physical examination; Constitutional: AO X3, comfortable, not in any distress Respiratory: occasional wheeze bilaterally Cardiovascular: RRR, no murmur, no edema Vessels: no JVD or carotid bruit Abdomen: normal bowel sounds, soft, nontender, no hepatosplenomegaly Musculoskeletal: no cyanosis or clubbing, extremities motor strength 5/5 Skin: no rashes, warm and dry normal turgor Neurologic: PERRL, EOMI, accommodation nl, no face palsy, no dysarthria CN's II- XI intact bilaterally and moves all extremities Psychiatric: A+Ox3, euthymic affect
--- NOTE | 2023-04-27 14:42 | Electrocardiogram Report ---
Test Reason : Blood Pressure : / mmHG Vent. Rate : 091 BPM Atrial Rate : 091 BPM P-R Int : 138 ms QRS Dur : 092 ms QT Int : 364 ms P-R-T Axes : 068 027 039 degrees QTc Int : 447 ms Sinus rhythm with frequent Premature ventricular complexes Minimal voltage criteria for LVH, may be normal variant Nonspecific ST abnormality Abnormal ECG When compared with ECG of 08-APR-2023 15:37, Premature ventricular complexes are now Present Confirmed by Patrick Polo ([id number]) on 04/27/2023 2:41:45 PM Referred By: REFERRED SELF Confirmed By:Manuel Polo
--- NOTE | 2023-04-27 14:47 | Electrocardiogram Report ---
Test Reason : Blood Pressure : / mmHG Vent. Rate : 075 BPM Atrial Rate : 075 BPM P-R Int : 158 ms QRS Dur : 094 ms QT Int : 400 ms P-R-T Axes : 070 044 080 degrees QTc Int : 446 ms Sinus rhythm with occasional Premature ventricular complexes Otherwise normal ECG When compared with ECG of 26-APR-2023 22:22, (unconfirmed) No significant change was found Confirmed by Patrick Polo ([id number]) on 04/27/2023 2:47:24 PM Referred By: REFERRED SELF Confirmed By:Manuel Polo
--- NOTE | 2023-04-27 14:58 | Electrocardiogram Report ---
Test Reason : Blood Pressure : / mmHG Vent. Rate : 071 BPM Atrial Rate : 071 BPM P-R Int : 152 ms QRS Dur : 100 ms QT Int : 404 ms P-R-T Axes : 075 040 058 degrees QTc Int : 439 ms Normal sinus rhythm Normal ECG When compared with ECG of 27-APR-2023 05:46, (unconfirmed) Premature ventricular complexes are no longer Present Confirmed by Patrick Polo ([id number]) on 04/27/2023 2:58:19 PM Referred By: REFERRED SELF Confirmed By:Manuel Polo
--- NOTE | 2023-04-27 15:04 | Electrocardiogram Report ---
Test Reason : Blood Pressure : / mmHG Vent. Rate : 084 BPM Atrial Rate : 084 BPM P-R Int : 152 ms QRS Dur : 102 ms QT Int : 376 ms P-R-T Axes : 063 020 045 degrees QTc Int : 444 ms Sinus rhythm with frequent Premature ventricular complexes Minimal voltage criteria for LVH, may be normal variant Borderline ECG When compared with ECG of 26-APR-2023 19:18, (unconfirmed) No significant change was found Confirmed by Patrick Polo ([id number]) on 04/27/2023 3:04:10 PM Referred By: REFERRED SELF Confirmed By:Manuel Polo
[2023-04-27] MEDS ORDERED: NON-FORMULARY MEDICATION (Fluticasone-Umeclidin-Vilanter [Trelegy Ellipta] 200-62.5-25 mcg INH SCH (21:00)
[2023-04-27] MEDS: MELATONIN 3 MG TAB PO PRN (22:15)
[2023-04-28] MEDS: MAGNESIUM OXIDE 400 MG TAB PO SCH (08:11)
[2023-04-28] MEDS: dilTIAZem HCL 180 MG CAPCR PO SCH (08:11)
[2023-04-28 09:26] LABS: BUN Creatinine Ratio 28.6 (10-20); Creatinine Clr Calc Pharmacy 106.5 ml/min; Est GFR (African American) 117.7 ml/min; Est GFR (Non-African American) 101.5 ml/min; Magnesium 1.9 mg/dl (1.7-2.4); Potassium 3.9 mmol/L (3.5-5.1)
--- NOTE | 2023-04-28 15:18 | Hospitalist Progress Note ---
Date of Service April 28, 2023 Assessment & Plan (1) Heart palpitations: Plan: 67-year-old female with past med significant for COPD, type 2 diabetes, hyperlipidemia who was recently in the hospital with bilateral pneumonia ,COPD exacerbation influenza A and acute hypoxemic respiratory failure and on discharge requiring 4 L oxygen at rest and 6 L on Exertion comes because of feeling her heart rate is going up and down. She did not feel any dizziness with it. Denies any headache. Has cough. No fevers. Appetite is okay. Currently no chest pain or shortness of breath. No nausea no abdominal pain. Normal bowel and bladder movements. Ambulates okay. Lives with her sister. She is being managed for the following: Palpitations/Freq PVCs States heart rates going up and down, alexandru w/ activity EKG shows frequent PVCs Troponin trends negative, echo with EF of 55 to 60% with grade 1 diastolic dysfunction. Patient not very aware of her home medication regimen. Cardiology evaluated, recommends magnesium supplementation, recommended titration of diltiazem to 180 mg daily. Not a good candidate for beta-carmen therapy due to severe oxygen dependent COPD with active wheeze. Cardiology follow-up in 4 to 6 weeks time. Possible need for eval for personnel monitor at that time. Telemetry monitoring, encourage activitycommunicated with RN. CXR concerning for pneumonia: Patient with baseline cough, no sputum production. No crackles heard during exam. Patient afebrile. Monitor closely for any signs of infection. Repeat chest x-ray in 4 weeks time upon discharge to document resolution of left lower lung airspace opacity. Clinically no pneumonia at present. Diabetes Hold home p.o. medications Sliding scale Will monitor Hypertension: Diltiazem uptitrated. Seems not taking lisinopril, will monitor/decide on resuming lisinopril upon discharge. History of COPD: Continue home inhalers DVT prophylaxis: Lovenox Disposition: Observation telemetry Full code Admission and Anticipated Discharge Date Admission Date: April 27, 2023 Subjective Patient was seen and examined at bedside. Patient was lying in bed, on 4 L oxygen via nasal cannula, NAD, not in any acute distress. Patient reports not moving around much, declines any palpitation in her current situation. Patient advised to ambulate around with assistance from nursing if needed. Communicated with RN to have patient ambulate in the hallway at least 2 times today. PT/OT ordered. Will reevaluate patient in the morning for any recurrence of the symptoms prior to deciding on discharge. Patient otherwise declines other ROS. Physical Exam Physical Exam: General- Not in acute distress Head- atraumatic Eyes- PERRL. ENT- oropharynx clear Neck- supple, no JVD. Lungs- diminished b/l breath sounds, no wheezing or crackles. Heart- regular rhythm; no murmur, no gallop. Abdomen- normal bowel sounds, soft, nontender, no distension. Extremities- no pretibial edema, no erythema seen. Neuro- alert, oriented PERRL, no facial palsy; no dysarthria; moves extremities. Skin- warm & dry Results & Data Results & Data Vital Signs (Past 12 Hours) Vital Signs Temp Pulse Pulse Resp BP Pulse Ox O2 Del Method 04/28/23 10:54 36.4 C L 84 19 147/72 H 92 Nasal Cannula 04/28/23 09:00 Nasal Cannula 04/28/23 08:00 74 04/28/23 07:29 36.5 C 75 19 145/75 H 94 Nasal Cannula O2 Flow Rate 04/28/23 10:54 04/28/23 09:00 4 04/28/23 08:00 04/28/23 07:29
--- NOTE | 2023-04-28 15:50 | Electrocardiogram Report ---
Test Reason : Blood Pressure : / mmHG Vent. Rate : 083 BPM Atrial Rate : 083 BPM P-R Int : 152 ms QRS Dur : 092 ms QT Int : 382 ms P-R-T Axes : 072 023 038 degrees QTc Int : 448 ms Sinus rhythm with frequent Premature ventricular complexes Possible Left atrial enlargement Poor R wave progression, consider anterior DE vs. lead placement vs. LVH Borderline ECG When compared with ECG of 27-APR-2023 08:10, Premature ventricular complexes are now Present Confirmed by Patrick Polo ([id number]) on 04/28/2023 3:50:25 PM Referred By: REFERRED SELF Confirmed By:Manuel Polo
[2023-04-29 06:03] LABS: Hematocrit (blood only) 43.3 % (37.0-47.0); Mean Corpuscular Hemoglobin 30.1 pg (25.0-34.0); Mean Corpuscular Hgb Conc 32.3 g/dL (32.0-36.0); Mean Corpuscular Volume 93.1 fL (80.0-100.0); Mean Platelet Volume 9.6 fL (9.4-12.4); Platelet Count 320 K/uL (130-400); RDW Coefficient of Variation 13.2 % (11.5-14.5); RDW Standard Deviation 45.1 fL (36.4-46.3); Red Blood Count 4.65 M/uL (4.20-5.40); White Blood Count 7.62 K/ul (4.8-10.8)
[2023-04-29 06:18] LABS: BUN Creatinine Ratio 38.1 (10-20); Calcium 8.8 mg/dl (8.6-10.3); Creatinine Clr Calc Pharmacy 123.1 ml/min; Est GFR (African American) 123.8 ml/min; Est GFR (Non-African American) 106.8 ml/min; Magnesium 2.1 mg/dl (1.7-2.4); Phosphorus 4.2 mg/dl (2.5-4.9)
--- NOTE | 2023-04-29 09:46 | Electrocardiogram Report ---
Test Reason : Blood Pressure : / mmHG Vent. Rate : 068 BPM Atrial Rate : 068 BPM P-R Int : 144 ms QRS Dur : 104 ms QT Int : 412 ms P-R-T Axes : -35 021 026 degrees QTc Int : 438 ms Unusual P axis, possible ectopic atrial rhythm Abnormal ECG When compared with ECG of 28-APR-2023 06:36, Ectopic atrial rhythm has replaced Sinus rhythm Confirmed by Patrick Polo ([id number]) on 04/29/2023 9:46:02 AM Referred By: REFERRED SELF Confirmed By:Manuel Polo
--- NOTE | 2023-04-29 13:32 | Discharge Summary ---
Date of Service April 29, 2023 Admission HPI Per Admitting Provider 67-year-old female with past med significant for COPD, type 2 diabetes, hyperlipidemia who was recently in the hospital with bilateral pneumonia ,COPD exacerbation influenza A and acute hypoxemic respiratory failure and on discharge requiring 4 L oxygen at rest and 6 L on Exertion comes because of feeling her heart rate is going up and down. She did not feel any dizziness with it. Denies any headache. Has cough. No fevers. Appetite is okay. Currently no chest pain or shortness of breath. No nausea no abdominal pain. Normal bowel and bladder movements. Ambulates okay. Lives with her sister. Past medical history. As mentioned above Past surgical history. Cataracts extraction. Family significant for diabetes. Social history. She is cut back on smoking currently smoking 1 cigarette daily. Lives with her sister. Admission Exam Per Admitting Provider General- Not in acute distress Head- atraumatic Eyes- PERRL. ENT- oropharynx clear Neck- supple, no JVD. Lungs- diminished b/l breath sounds, no wheezing or crackles. Heart- regular rhythm; no murmur, no gallop. Abdomen- normal bowel sounds, soft, nontender, no distension. Extremities- no pretibial edema, no erythema seen. Neuro- alert, oriented PERRL, no facial palsy; no dysarthria; moves extremities. Skin- warm & dry Principal Diagnosis Palpitations/frequent PVCs Discharge Exam General- Not in acute distress Head- atraumatic Eyes- PERRL. ENT- oropharynx clear Neck- supple, no JVD. Lungs- diminished b/l breath sounds, no wheezing or crackles. Heart- regular rhythm; no murmur, no gallop. Abdomen- normal bowel sounds, soft, nontender, no distension. Extremities- no pretibial edema, no erythema seen. Neuro- alert, oriented PERRL, no facial palsy; no dysarthria; moves extremities. Skin- warm & dry Discharge Data Allergies Allergy/AdvReac Type Severity Reaction Status Date / Time No Known Allergies Allergy Mild Verified 04/27/23 00:23 Consultations 04/26/23 23:44 ED Decision to Admit Stat 04/27/23 08:00 Consult Cardiology Routine Hospital Course (1) Heart palpitations: 67-year-old female with past med significant for COPD, type 2 diabetes, hyperlipidemia who was recently in the hospital with bilateral pneumonia ,COPD exacerbation influenza A and acute hypoxemic respiratory failure and on discharge requiring 4 L oxygen at rest and 6 L on Exertion comes because of feeling her heart rate is going up and down. She did not feel any dizziness with it. Denies any headache. Has cough. No fevers. Appetite is okay. Currently no chest pain or shortness of breath. No nausea no abdominal pain. Normal bowel and bladder movements. Ambulates okay. Lives with her sister. She was managed for the following: Palpitations/Freq PVCs States heart rates going up and down, alexandru w/ activity EKG shows frequent PVCs Troponin trends negative, echo with EF of 55 to 60% with grade 1 diastolic dysfunction. Patient not very aware of her home medication regimen. Cardiology evaluated, recommends magnesium supplementation, recommended titration of diltiazem to 180 mg daily. Not a good candidate for beta-carmen therapy due to severe oxygen dependent COPD with active wheeze. Cardiology follow-up in 4 to 6 weeks time. Possible need for eval for management trainer at that time. Patient was encouraged ambulation, patient declined any palpitation with activity while in hospital. Patient's daughter was given a phone call to have follow-up with cardiology in 4 weeks time. CXR concerning for pneumonia: Patient with baseline cough, no sputum production. No crackles heard during exam. Patient afebrile. Monitor closely for any signs of infection. Repeat chest x-ray in 4 weeks time upon discharge to document resolution of left lower lung airspace opacity. Clinically no pneumonia at present. This could be resolving pneumonia finding in CXR from her recent pneumonia episode. Diabetes Hold home p.o. medications Sliding scale Will monitor Hypertension: Diltiazem uptitrated. Seems not taking lisinopril, will monitor/decide on resuming lisinopril upon discharge. History of COPD: Continue home inhalers DVT prophylaxis: Lovenox Disposition: Observation telemetry Full code Patient is being discharged with following instruction at the point of discharge: Follow-up with your primary care physician within a week time and likely you will need labs CBC/CMP/magnesium/phosphorus. You were evaluated for palpitation, your diltiazem has been increased to 180 mg daily. You will need follow-up with cardiology in about 4 weeks time for further evaluation for need for management trainer at that point in time. Magnesium supplement has been added upon discharge. As discussed with your daughter over the phone, your lisinopril will be decreased to 2.5 mg daily since your diltiazem dose has been increased. Recommend obtaining chest x-ray in about 4 weeks time to document resolution of your left lower lung opacity noted while in the hospital. Take your medications as prescribed. Please make sure that you are able to get your medications today by calling your pharmacy before you leave the hospital so that your treatment continuity is not broken. Home Health Attestation I certify that this patient is under my care and that I, or a physicians program assistant working with me, had a face to-face encounter that meets the home health [id number] encounter requirements with this patient. The encounter with the patient was in whole, or in part, for the following medical condition, which is the primary reason for home health care (list medical condition): I certify that, based on my findings, the following services are medically necessary home health services: My clinical findings support the need for the above services because: Further, I certify that my clinical findings support that this patient is homebound (i.e. absences from home require considerable and taxing effort and are for medical reasons or [employer]ec[employer] services or infrequently or of short durat ion when for other reasons) because: Certification for Home Health Services: Based on the above findings, I certify that this patient is confined to the home and needs intermittent longterm care, physical therapy and/or speech therapy or continues to need occupational therapy. The patient is under my care, and I have initiated the establishment of the plan of care. This patient will be followed by a physician who will periodically review the plan of care. Total Time Total Time Spent Total Time Spent (In Minutes): 45 Discharge Plan Discharge Items Patient Disposition: Home - Self-Care Reason For Visit: ARRYTHMIA/PALPITATIONS Discharge Diagnosis: Palpitations/frequent PVCs Condition on Discharge: Fair Activity: Resume your previous activity Non-emergency contact: Primary Care Provider Call non-emergency contact if: you have any medication questions and your sy mptoms worsen Follow-up/Referrals: Stephanie Parekh CRNP [Nurse Practitioner] - (Date & Time 06/11/2023 3:00 PM Provider Stephanie Parekh CRNP Department Cardiology, [facility] ) Kandace Braxton MD [Outside Practitioners] - (Date & Time 05/03/2023 1:20 PM Provider Kandace Braxton MD Department [facility] ) Diet: Carb Consistent or DM2, Heart Healthy and Low Sodium (2gm) Addtl Attending Provider Instructions: Follow-up with your primary care physician within a week time and likely you will need labs CBC/CMP/magnesium/phosphorus. You were evaluated for palpitation, your diltiazem has been increased to 180 mg daily. You will need follow-up with cardiology in about 4 weeks time for furth er evaluation for need for management trainer at that point in time. Magnesium supplement has been added upon discharge. As discussed with your daughter over the phone, your lisinopril will be decreased to 2.5 mg daily since your diltiazem dose has been increased. Recommend obtaining chest x-ray in about 4 weeks time to document resolution of your left lower lung opacity noted while in the hospital. Take your medications as prescribed. Please make sure that you are able to get your medications today by calling your pharmacy before you leave the hospital so that your treatment continuity is not broken. Pending Studies at Discharge: No Stand-Alone Forms: My [facility], Smoking Cessation Medications and DC Order Prescriptions: New nicotine [Nicoderm CQ] 21 mg/24 hr Patch 24 Hour 21 mg transdermal QAM Qty: 28 0RF diltiazem HCl 180 mg Capsule,Extended Release 24hr 180 mg PO DAILY Qty: 30 0RF magnesium oxide 400 mg (241.3 mg magnesium) Tablet 400 mg PO QAM Qty: 30 0RF Continued atorvastatin 20 mg tablet 20 mg PO DAILY montelukast 10 mg tablet 10 mg PO DAILY fluticasone propionate 50 mcg/actuation spray,suspension 1 spray INTRANASAL DAILY metformin 500 mg tablet extended release 24 hr 1,000 mg PO BID aspirin 81 mg Tablet,Delayed Release (Dr/Ec) 81 mg PO DAILY ipratropium bromide 0.02 % solution 2.5 ml inhalation Q4H PRN (Reason: Shortness Of Breath Or Wheezing) Jardiance 25 mg tablet 25 mg PO DAILY Trelegy Ellipta 200-62.5-25 mcg blister with device 1 inh INHALATION QPM methylprednisolone 4 mg tablets,dose pack 0 mg PO .TAPER UD Rx Instructions: filled 04/20/23 ipratropium-albuterol 0.5 mg-3 mg(2.5 mg base)/3 mL solution for nebulization 3 ml NEB Q4 PRN (Reason: Shortness Of Breath Or Wheezing) Changed lisinopril 5 mg tablet 2.5 mg PO DAILY Qty: 15 0RF Rx Instructions: does not remember taking this anymore/ last filled in september. Discontinued diltiazem HCl 120 mg capsule,extended release 24hr 120 mg PO DAILY Discharge Orders: Discharge Order (Routine); Ordered 04/29/23 Ordered By: Barbie Flores/Other Patient Handouts: Managing Type 2 Diabetes Admission Data Admit Date/Time: 04/27/23 01:22 Attending Provider: Barbie Haider Admit Provider: Gigi Dotson Primary Care Provider: Riri England Other Providers: Jimbo Garber; Gigi Dotson
== END 2023-04-29 14:44 | disposition home or self-care (01) ==
LOC: EDINP 19:03 → ED 19:03 → SUATTDRO 04-27 01:22 → 2S 04-27 01:37

== ENCOUNTER 2024-07-26 14:39 | Inpatient (IN) ==
--- NOTE | 2024-07-26 15:12 | Emergency Department Note ---
Impression & Plan Septicemia Admission ED Provider Note HPI: History obtained from patient. The patient is a 68-year-old female who presents the emergency department with a chief complaint of weakness. Patient was contacted to come back to the hospital after she was here yesterday for a UTI, weakness, her blood cultures were found to have positive growth for gram-negative bacilli in 1 aerobic bottle and therefore she was advised to come back to the ER for admission. Urine culture was positive for E. coli. Patient states she generally feels weak but denies any other focal symptoms on my assessment. On arrival here to the ED the patient is hemodynamically stable, she is saturating well on her 2 L nasal cannula oxygen on my initial assessment. ROS: - Per HPI Differential Diagnosis: Sepsis, UTI, pneumonia, critical electrolyte abnormalities, dehydration/YIFAN, amongst other potential pathologies. *Outpatient medications and allergy history reviewed. PE: General: Alert, frail-appearing, no acute distress HEENT: Normocephalic, trachea midline Eyes: Extraocular eye movement is intact, no scleral erythema Pulmonary: Coarse bilateral breath sounds with mild expiratory wheezing bilaterally and throughout Cardio: Regular rate and rhythm GI: Abdomen is soft to palpation : No suprapubic tenderness MSK: No evidence of trauma or malformation of the extremities, no edema Skin: No evidence of rash Neuro: Alert, no focal deficits Psychiatric: Cooperative INDEPENDENT INTERPRETATIONS: senior data architect: (As interpreted by myself): - An order was placed for continuous cardiac monitoring - Patient was noted to be in sinus rhythm with a rate of 95 EKG: (As interpreted by myself): Rate: 93 Rhythm: Normal sinus rhythm Intervals: Within normal limits ST changes: No ST elevation Time: 1445 Chest x-ray: (As interpreted by myself): No focal infiltrate Interventions provided in ED: - IV fluid bolus, IV cefepime, DuoNeb breathing treatment Medical Decision Making: IV was established and lab work obtained, patient was placed on malter operator. Lab work shows a mild leukopenia at 2.92, hemoglobin is stable at 9.2. Platelet count is normal. CMP shows mild hypokalemia 3.2 which was ordered for oral repletion. Lactic acid is normal. Procalcitonin is low. Troponin is negative x 1. EKG does not show any evidence of any acute ischemic changes per my interpretation. Chest x-ray does not show any evidence of pneumonia, urinalysis does show 1+ leukocyte esterase with significant pyuria. Given that patient's blood culture was positive for Pseudomonas and urine culture was positive for E. coli, patient was in agreement for admission and I did recommend admission. Case was discussed with the on-call hospitalist service for [facility] and the patient was placed for admission to the service of Dr. Montes in stable condition. Consultants/Discussions held with other healthcare providers: - Hospitalist, Dr. Montes Disposition discussion held by myself with: - Patient Diagnosis: 1. UTI, acute 2. Generalized weakness, acute 3. Leukopenia, acute 4. Positive blood culture, acute 5. Positive urine culture, acute Disposition: Admission Marshall Beltre DO Emergency Medicine Past Med/Surg History Problem List (Updated 07/26/24 @ 19:32 by Marshall Beltre DO) Septicemia (Acute) Hypokalemia (Acute) Acute UTI (Acute) GI bleed due to NSAIDs NSAID induced gastritis Reactive thrombocytosis Chronic respiratory failure with hypoxia, on home O2 therapy Hematuria Nicotine dependence with current use Anemia of chronic disease Constipation, chronic Mediastinal mass Metastasis of unknown primary Sepsis Adrenal mass (Acute) Elevated troponin (Acute) GI bleed (Acute) Frequent PVCs (Acute) Heart palpitations (Acute) Hyponatremia Dehydration Influenza A (Acute) COPD exacerbation Acute hypoxic respiratory failure (Acute) T2DM (type 2 diabetes mellitus) Medical History Bilateral pneumonia HLD (hyperlipidemia) Tobacco abuse COPD (chronic obstructive pulmonary disease) Surgical History Hx of cataract extraction Family History Other Diabetes Social History Smoking Status: Current every day smoker Tobacco Type: Cigarettes Cigarettes Per Day: 4; Second Hand Exposure: No; Do You Dip or Chew Tobacco: No; Hx Alcohol Use: No Hx Substance Use: No Preferred Language: Frisian Communication Ability: Effective Lasting Machine Operator Required: No Beliefs That Will Affect Care: None marital status: Single Current Living Situation: Alone Feels Safe at Home: Yes Safety Concerns: Feels Safe At This Time Assistive Devices: Oxygen - Continuous, Walker and Wheelchair Allergies Allergies Allergy/AdvReac Type Severity Reaction Status Date / Time No Known Allergies Allergy Mild Verified 07/19/24 08:31 Home Meds Home Medications Medication Instructions Recorded Confirmed atorvastatin 20 mg tablet 20 mg PO DAILY 04/08/23 07/26/24 fluticasone fur. 200 mcg-umeclid 1 inh inhalation QPM 04/08/23 07/26/24 62.5 mcg-vilant 25 mcg inhalat.powder (Trelegy Ellipta) fluticasone propionate 50 2 spray intranasal QAM 04/08/23 07/26/24 mcg/actuation nasal spray,suspension metformin 500 mg tablet,extended 1,000 mg PO BID 04/08/23 07/26/24 release 24 hr montelukast 10 mg tablet 10 mg PO QAM 04/08/23 07/26/24 ipratropium 0.5 mg-albuterol 3 mg 3 ml NEB Q6H PRN Shortness Of 04/27/23 07/26/24 (2.5 mg base)/3 mL nebulization Breath Or Wheezing soln acetaminophen 650 mg 650 mg PO Q8H PRN Pain 06/21/24 07/26/24 tablet,extended release albuterol sulfate 2.5 mg/3 mL 2.5 mg inhalation Q6H PRN Wheezing 06/21/24 07/26/24 (0.083 %) solution for nebulization albuterol sulfate 90 mcg/actuation 2 puff inhalation Q4H PRN Wheezing 06/21/24 07/26/24 aerosol inhaler dapagliflozin propanediol 10 mg 10 mg PO QAM 06/21/24 07/26/24 tablet (Farxiga) lisinopril 5 mg tablet 5 mg PO DAILY 06/21/24 07/26/24 diltiazem HCl 180 mg 180 mg PO QAM 07/26/24 07/26/24 capsule,extended release 24 hr ferrous sulfate 325 mg (65 mg 325 mg PO QAM 07/26/24 07/26/24 iron) tablet (Feosol) mirtazapine 15 mg tablet 15 mg PO DAILY 07/26/24 07/26/24 olanzapine 2.5 mg tablet 2.5 mg PO UD 07/26/24 07/26/24 ondansetron 8 mg disintegrating 8 mg translingual Q8 PRN Nausea 07/26/24 07/26/24 tablet And Vomiting oxycodone 5 mg tablet 5 mg PO .EVERY 4-6 HOURS PRN Pain 07/26/24 07/26/24 pantoprazole 40 mg tablet,delayed 40 mg PO [facility]HS 07/26/24 07/26/24 release prochlorperazine maleate 10 mg 10 mg PO Q6 PRN Nausea 07/26/24 07/26/24 tablet Previous Rx's Medication Instructions Recorded benzonatate 100 mg capsule 100 mg PO Q6H PRN cough #30 caps 06/24/24 polyethylene glycol 3350 17 gram 17 g PO DAILY #100 ea 06/24/24 oral powder packet (Miralax) cefdinir 300 mg capsule 300 mg PO BID 7 days #14 caps 07/25/24 Results & Data (ED) Vital Signs Vital Signs - 24 hr 07/26/24 14:29 07/26/24 14:29 07/26/24 15:09 Pulse Rate 92 H 86 Pulse Rate [Apical] 92 H Pulse Rhythm Regular Regular Pulse Rhythm [Apical] Regular Pulse Strength Normal Pulse Strength [Apical] Normal Respiratory Rate 24 24 24 Respiratory Effort / Characteristics Non-Labored Spontaneous Non-Labored Spontaneous Respiratory Depth Normal Normal Respiratory Pattern Regular Regular Blood Pressure 119/49 L Blood Pressure [Right Arm] 119/49 L Blood Pressure Mean 72 Blood Pressure Mean [Right Arm] 72 Blood Pressure Position Lying Blood Pressure Position [Right Arm] Sitting Pulse Oximetry 100 100 100 Oxygen Delivery Method Nasal Cannula Nasal Cannula Nasal Cannula Oxygen Flow Rate 3 3 3 Sepsis Recent Fever Within 48 Hours No Sepsis New/Unexplained Change in Mental Status No Sepsis Action Taken by Nursing No Action Required 07/26/24 15:09 07/26/24 15:12 07/26/24 15:25 Pulse Rate 93 H Pulse Rate [Apical] 86 89 Pulse Rhythm Pulse Rhythm [Apical] Regular Regular Pulse Strength Pulse Strength [Apical] Normal Respiratory Rate 21 25 H Respiratory Effort / Characteristics Non-Labored Spontaneous Respiratory Depth Normal Normal Respiratory Pattern Regular Blood Pressure Blood Pressure [Right Arm] 131/58 L 131/58 L Blood Pressure Mean Blood Pressure Mean [Right Arm] 82 82 Blood Pressure Position Blood Pressure Position [Right Arm] Sitting Lying Pulse Oximetry 87 L 100 Oxygen Delivery Method Nasal Cannula Nebulizer Oxygen Flow Rate 3 5 Sepsis Recent Fever Within 48 Hours Sepsis New/Unexplained Change in Mental Status Sepsis Action Taken by Nursing 07/26/24 16:29 Pulse Rate Pulse Rate [Apical] 88 Pulse Rhythm Pulse Rhythm [Apical] Regular Pulse Strength Pulse Strength [Apical] Respiratory Rate 24 Respiratory Effort / Characteristics Labored Respiratory Depth Respiratory Pattern Blood Pressure Blood Pressure [Right Arm] 121/54 L Blood Pressure Mean Blood Pressure Mean [Right Arm] 76 Blood Pressure Position Blood Pressure Position [Right Arm] Lying Pulse Oximetry 99 Oxygen Delivery Method Nasal Cannula Oxygen Flow Rate 3 Sepsis Recent Fever Within 48 Hours Sepsis New/Unexplained Change in Mental Status Sepsis Action Taken by Nursing Laboratory Data 07/26/24 14:55 07/26/24 14:55 Lab Results 07/26/24 07/26/24 Range/Units 14:55 15:27 WBC 2.92 L (4.8-10.8) K/ul RBC 3.38 L (4.20-5.40) M/uL Hgb 9.2 L (12.0-16.0) g/dl Hct 29.7 L (37.0-47.0) % MCV 87.9 (80.0-100.0) fL MCH 27.2 (25.0-34.0) pg MCHC 31.0 L (32.0-36.0) g/dL RDW Std Deviation 52.5 H (36.4-46.3) fL RDW Coeff of Janel 16.3 H (11.5-14.5) % Plt Count 343 (130-400) K/uL MPV 10.5 (9.4-12.4) fL Immature Gran % (Auto) 0.7 % Neut % (Auto) 70.9 % Lymph % (Auto) 21.2 % Stearns % (Auto) 2.4 % Eos % (Auto) 3.4 % Baso % (Auto) 1.4 % Neut # (Auto) 2.07 (1.40-6.50) K/uL Lymph # (Auto) 0.62 L (1.20-3.40) K/uL Stearns # (Auto) 0.07 L (0.11-0.59) K/uL Eos # (Auto) 0.10 (0.00-0.50) K/uL Baso # (Auto) 0.04 (0.00-0.20) K/uL Immature Gran # (Auto) 0.02 (0.01-0.20) K/uL Hyposegmented Neuts 1+ Sodium 138 (136-145) mmol/L Potassium 3.2 L (3.5-5.1) mmol/L Chloride 97 L (98-107) mmol/L Carbon Dioxide 30 (21-32) mmol/L Anion Gap 11 (3-11) BUN 11 (6-23) mg/dl Creatinine 0.57 L (0.6-1.2) mg/dl Est Cr Clr Drug Dosing 82.7 ml/min eGFR 99.54 BUN/Creatinine Ratio 19.3 (10-20) Glucose 118 H (70-99(Fasting)) mg/dl Lactate 1.1 (0.4-2.0) mmol/L Calcium 8.7 (8.6-10.3) mg/dl Magnesium 1.8 (1.7-2.4) mg/dl Total Bilirubin 0.4 (0.2-1.0) mg/dl Direct Bilirubin 0.1 (0-0.2) mg/dl AST 17 (13-39) U/L ALT 9 (7-52) U/L Alkaline Phosphatase 88 (34-104) U/L Troponin I High Sens 6.4 (0-14) pg/ml Total Protein 6.5 (6.0-8.3) gm/dl Albumin 2.9 L (3.4-5.0) gm/dl Procalcitonin 0.11 (0-0.5) ng/ml Administered Medications Sodium Chloride (Nss) 1,000 mls @ 80 mls/hr IV .[id number] [facility] Stop: 07/29/24 18:31 Last Admin: 07/26/24 19:25 Dose: 80 mls/hr Documented By: PNM Potassium Chloride (Potassium Chloride Pwd 20 Meq Pack) 40 meq PO QAM [facility] Stop: 08/25/24 16:29 Last Admin: 07/26/24 17:02 Dose: 40 meq Documented By: SNS Discontinued Medications Albuterol (Albut/Ipratrop 3mg/0.5mg Neb 3 Ml Vial) 3 ml NEB NOW STA; Protocol Stop: 07/26/24 15:11 Last Admin: 07/26/24 15:21 Dose: 3 ml Documented By: SNS Sodium Chloride (Nss) 500 mls @ 999 mls/hr IV .Q31M [facility] Stop: 07/26/24 15:45 Last Infusion: 07/26/24 15:54 Dose: Infused Documented By: Admin: 07/26/24 15:21 Dose: 999 mls/hr Documented By: LAURA Ceftriaxone Sodium (Rocephin) 2,000 mg in 50 mls @ 100 mls/hr IV NOW STA Stop: 07/26/24 15:39 Last Admin: 07/26/24 15:21 Dose: Not Given Documented By: LAURA Cefepime HCl (Maxipime 2000mg) 2,000 mg in 20 mls @ 5 mls/min IV NOW STA; Protocol Stop: 07/26/24 15:16 Last Admin: 07/26/24 15:21 Dose: 5 mls/min Documented By: LAURA Imaging Data Radiologist's Impression: Chest X-Ray 07/26/24 15:09 XR chest 1V portable CLINICAL HISTORY: cough COMPARISON STUDY: 07/25/2024 FINDINGS: Heart size and pulmonary vasculature are normal. No consolidation or pleural effusion seen. No pneumothorax. IMPRESSION: No pneumonia seen. ACT 112: Negative or not required by law. Electronically signed by: Jeremi Ascencio M.D. 07/26/2024 3:48 PM Discharge Plan Visit Data Chief Complaint: Abnormal Labs/Diagnostic Testing ED Provider: Marshall Beltre Discharge Problem: Septicemia Patient Disposition: Admitted As Inpatient Condition: Fair Discharge Instructions Interventions: ED Discharge Assessment Last Done: 07/26/24 17:48
[2024-07-26 15:21] LABS: Hematocrit (blood only) 29.7 % (37.0-47.0); Hemoglobin 9.2 g/dl (12.0-16.0); Mean Corpuscular Hemoglobin 27.2 pg (25.0-34.0); Mean Corpuscular Volume 87.9 fL (80.0-100.0); Mean Platelet Volume 10.5 fL (9.4-12.4); Platelet Count 343 K/uL (130-400); RDW Coefficient of Variation 16.3 % (11.5-14.5); RDW Standard Deviation 52.5 fL (36.4-46.3); Red Blood Count 3.38 M/uL (4.20-5.40); White Blood Count 2.92 K/ul (4.8-10.8)
[2024-07-26] MEDS: ALBUT/IPRATROP 3MG/0.5MG NEB 3 ML VIAL NEB STA (15:21)
[2024-07-26] MEDS: CEFEPIME 2000MG 2,000 MG/20 ML SYR IV STA (15:21)
[2024-07-26] MEDS: cefTRIAXone SODIUM 2,000 MG/50 ML BAG IV STA (15:21)
[2024-07-26] MEDS: SODIUM CHLORIDE 0.9% 500 ML IV SCH (15:21)
[2024-07-26 15:38] LABS: Albumin Level 2.9 gm/dl (3.4-5.0); BUN Creatinine Ratio 19.3 (10-20); Bilirubin Direct 0.1 mg/dl (0-0.2); Bilirubin,Total 0.4 mg/dl (0.2-1.0); Calcium 8.7 mg/dl (8.6-10.3); Creatinine Clr Calc Pharmacy 82.7 ml/min; Magnesium 1.8 mg/dl (1.7-2.4); Potassium 3.2 mmol/L (3.5-5.1); Total Protein 6.5 gm/dl (6.0-8.3)
[2024-07-26 15:45] LABS: Troponin I High Sensitivity 6.4 pg/ml (0-14)
[2024-07-26 15:46] LABS: Basophils # (auto) 0.04 K/uL (0.00-0.20); Basophils % (auto) 1.4 %; Eosinophils % (auto) 3.4 %; Immature Granulocytes # (auto) 0.02 K/uL (0.01-0.20); Immature Granulocytes % (auto) 0.7 %; Lymphocytes # (auto) 0.62 K/uL (1.20-3.40); Lymphocytes % (auto) 21.2 %; Monocytes # (auto) 0.07 K/uL (0.11-0.59); Monocytes % (auto) 2.4 %; Neutrophils # (auto) 2.07 K/uL (1.40-6.50); Neutrophils % (auto) 70.9 %
--- NOTE | 2024-07-26 15:49 | XRay Report ---
XR chest 1V portable CLINICAL HISTORY: cough COMPARISON STUDY: 07/25/2024 FINDINGS: Heart size and pulmonary vasculature are normal. No consolidation or pleural effusion seen. No pneumothorax. IMPRESSION: No pneumonia seen. ACT 112: Negative or not required by law. Electronically signed by: Jeremi Ascencio M.D. 07/26/2024 3:48 PM
--- NOTE | 2024-07-26 16:46 | History & Physical Report ---
Date of Service July 26, 2024 History of Present Illness Primary Care Provider: Kandace Braxton MD Allergies Allergy/AdvReac Type Severity Reaction Status Date / Time No Known Allergies Allergy Mild Verified 07/19/24 08:31 Home Medications Medication Instructions Recorded Confirmed Type atorvastatin 20 mg tablet 20 mg PO DAILY 04/08/23 07/26/24 History fluticasone fur. 200 mcg-umeclid 1 inh inhalation QPM 04/08/23 07/26/24 History 62.5 mcg-vilant 25 mcg inhalat.powder (Trelegy Ellipta) fluticasone propionate 50 2 spray intranasal DAILY 04/08/23 07/19/24 History mcg/actuation nasal spray,suspension metformin 500 mg tablet,extended 1,000 mg PO BID 04/08/23 07/26/24 History release 24 hr montelukast 10 mg tablet 10 mg PO QAM 04/08/23 07/19/24 History ipratropium 0.5 mg-albuterol 3 mg 3 ml NEB Q6H PRN Shortness Of 04/27/23 07/19/24 History (2.5 mg base)/3 mL nebulization Breath Or Wheezing soln diltiazem HCl 180 mg 180 mg PO DAILY #30 caps 04/29/23 07/26/24 Rx capsule,extended release 24 hr acetaminophen 650 mg 650 mg PO Q8H PRN Pain 06/21/24 07/26/24 History tablet,extended release albuterol sulfate 2.5 mg/3 mL 2.5 mg inhalation Q6H PRN Wheezing 06/21/24 07/26/24 History (0.083 %) solution for nebulization albuterol sulfate 90 mcg/actuation 2 puff inhalation Q4H PRN Wheezing 06/21/24 07/26/24 History aerosol inhaler bupropion HCl 150 mg 24 hr tablet, 150 mg PO QAM 06/21/24 07/19/24 History extended release (Wellbutrin XL) dapagliflozin propanediol 10 mg 10 mg PO QAM 06/21/24 07/26/24 History tablet (Farxiga) lisinopril 5 mg tablet 5 mg PO DAILY 06/21/24 07/19/24 History azithromycin 250 mg tablet 250 mg PO HS #2 tabs 06/24/24 07/19/24 Rx benzonatate 100 mg capsule 100 mg PO Q6H PRN cough #30 caps 06/24/24 07/19/24 Rx ferrous sulfate 325 mg (65 mg 325 mg PO DAILY #30 tabs 06/24/24 07/19/24 Rx iron) tablet (Feosol) guaifenesin 400 mg tablet 400 mg PO TID #90 tabs 06/24/24 07/19/24 Rx nicotine 7 mg/24 hr daily 1 patch transdermal DAILY #14 ea 06/24/24 07/19/24 Rx transdermal patch pantoprazole 40 mg tablet,delayed 40 mg PO BID #30 tabs 06/24/24 07/19/24 Rx release polyethylene glycol 3350 17 gram 17 g PO DAILY #100 ea 06/24/24 07/26/24 Rx oral powder packet (Miralax) cefdinir 300 mg capsule 300 mg PO BID 7 days #14 caps 07/25/24 07/26/24 Rx mirtazapine 15 mg tablet 15 mg PO DAILY 07/26/24 07/26/24 History olanzapine 2.5 mg tablet 2.5 mg PO UD 07/26/24 07/26/24 History ondansetron 8 mg disintegrating 8 mg translingual Q8 PRN Nausea 07/26/24 07/26/24 History tablet And Vomiting oxycodone 5 mg tablet 5 mg PO .EVERY 4-6 HOURS PRN Pain 07/26/24 07/26/24 History prochlorperazine maleate 10 mg 10 mg PO Q6 PRN Nausea 07/26/24 07/26/24 History tablet Past Med/Surg History Problem List (Updated 07/25/24 @ 18:38 by Satya Rowell MD) Hypokalemia (Acute) Acute UTI (Acute) GI bleed due to NSAIDs NSAID induced gastritis Reactive thrombocytosis Chronic respiratory failure with hypoxia, on home O2 therapy Hematuria Nicotine dependence with current use Anemia of chronic disease Constipation, chronic Mediastinal mass Metastasis of unknown primary Sepsis Adrenal mass (Acute) Elevated troponin (Acute) GI bleed (Acute) Frequent PVCs (Acute) Heart palpitations (Acute) Hyponatremia Dehydration Influenza A (Acute) COPD exacerbation Acute hypoxic respiratory failure (Acute) T2DM (type 2 diabetes mellitus) Medical History Bilateral pneumonia HLD (hyperlipidemia) Tobacco abuse COPD (chronic obstructive pulmonary disease) Surgical History Hx of cataract extraction Family History Other Diabetes Social History Smoking Status: Current every day smoker Tobacco Type: Cigarettes Cigarettes Per Day: 4; Second Hand Exposure: No; Do You Dip or Chew Tobacco: No; Hx Alcohol Use: No Hx Substance Use: No Preferred Language: Swedish Communication Ability: Effective 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 Beliefs That Will Affect Care: None marital status: Single Current Living Situation: Spouse Feels Safe at Home: Yes Assistive Devices: Cane, CPAP, Oxygen - Continuous and Walker Results & Data Results & Data Vital Signs (Past 12 Hours) Vital Signs Pulse Pulse Resp BP BP Pulse Ox O2 Del Method 07/26/24 15:25 89 25 H 131/58 L 100 Nebulizer 07/26/24 15:12 93 H 07/26/24 15:09 86 21 131/58 L 87 L Nasal Cannula 07/26/24 15:09 86 24 100 Nasal Cannula 07/26/24 14:29 92 H 24 119/49 L 100 Nasal Cannula 07/26/24 14:29 92 H 24 119/49 L 100 Nasal Cannula O2 Flow Rate 07/26/24 15:25 5 07/26/24 15:12 07/26/24 15:09 3 07/26/24 15:09 3 07/26/24 14:29 3 07/26/24 14:29 3
[2024-07-26] MEDS: POTASSIUM CHLORIDE PWD 20 MEQ PACK PO SCH (17:02)
[2024-07-26 17:26] LABS: Appearance Urine Clear (Clear); Bacteria Urine Automated None Seen (None Seen); Bilirubin Urine Negative (Negative); Blood Urine Negative (Negative); Color Urine Yellow; Glucose Urine UA 3+ (Negative); Ketones Urine 1+ (Negative); Leukocyte Esterase Urine 1+ (Negative); Nitrite Urine Negative (Negative); Protein Urine 1+ (Negative); RBC Urine Automated 0-2 /hpf (0-2); Specific Gravity Urine 1.021 (1.000-1.030); Urobilinogen Urine Negative (Negative); WBC Urine Automated >50 /hpf (0-5); pH Urine 5.5 (4.5-7.5)
--- NOTE | 2024-07-26 17:36 | History & Physical Report ---
Date of Service July 26, 2024 Assessment & Plan (1) Acute UTI: (2) Chronic respiratory failure with hypoxia, on home O2 therapy: (3) Sepsis: Plan Assessment/plan Gram-negative bacteremia Sepsis POA Patient presented to the hospital with generalized weakness, burning micturition Urinalysis positive of infection; urine culture positive for E. coli 1 out of 4 blood culture on 07/25 positive for gram-negative bacilli; PCR positive for Pseudomonas aeruginosa Started on cefepime at 2 g every 8 hours; follow-up on final culture and sensitivity Will consult infectious disease Repeat blood culture pending Hypokalemiacontinue potassium supplement daily Leukopenia likely secondary to chemotherapycontinue CBC monitoring daily. COPD on chronic oxygen-will place her on DuoNeb every 6 given mild bilateral wheeze, Hypertensioncontinue on home meds Hyperlipidemiacontinue on home med Type 2 diabetes mellituscontinue on insulin history of PVCscontinue on Cardizem Full code DVT prophylaxis heparin Time spent evaluating patient, direct bedside care, chart review, placing orders, interpretation of diagnostic studies, discussion with consultants, patient, and family members, as well as other required patient management activities is 75 minutes Please note the above document was generated using voice recognition software. It may contain grammatical, syntax or spelling errors. Any formal questions or concerns about the content, text or information contained within the body of this dictation should be directly addressed to the provider for clarification History of Present Illness Chief Complaint: Positive blood culture Primary Care Provider: Kandace Braxton MD History obtained from interview with the patient and chart review Past medical history of metastatic carcinoma of unknown origin(possibly adenocarcinoma of adrenal gland), COPD, anemia, hypertension, hyperlipidemia, type 2 diabetes mellitus, history of PVC Patient presented to the hospital yesterday with generalized weakness. She had recently started chemotherapy on Wednesday. Urinalysis was suggestive of UTI. Blood culture was obtained and patient was recommended inpatient stay. However, patient wanted to go home. Blood culture 1 out of 4 was positive for gram-negative bacilli and patient was asked to come back to the ED. Patient denies fever, chills, chest pain, shortness of breath or abdominal pain. She does report some burning micturition and increased urgency. On presentation to the ED, she was afebrile, normotensive and saturating at 3 L of nasal cannula; reports that is her baseline. Allergies Allergy/AdvReac Type Severity Reaction Status Date / Time No Known Allergies Allergy Mild Verified 07/19/24 08:31 Home Medications Medication Instructions Recorded Confirmed Type atorvastatin 20 mg tablet 20 mg PO DAILY 04/08/23 07/26/24 History fluticasone fur. 200 mcg-umeclid 1 inh inhalation QPM 04/08/23 07/26/24 History 62.5 mcg-vilant 25 mcg inhalat.powder (Trelegy Ellipta) fluticasone propionate 50 2 spray intranasal QAM 04/08/23 07/26/24 History mcg/actuation nasal spray,suspension metformin 500 mg tablet,extended 1,000 mg PO BID 04/08/23 07/26/24 History release 24 hr montelukast 10 mg tablet 10 mg PO QAM 04/08/23 07/26/24 History ipratropium 0.5 mg-albuterol 3 mg 3 ml NEB Q6H PRN Shortness Of 04/27/23 07/26/24 History (2.5 mg base)/3 mL nebulization Breath Or Wheezing soln acetaminophen 650 mg 650 mg PO Q8H PRN Pain 06/21/24 07/26/24 History tablet,extended release albuterol sulfate 2.5 mg/3 mL 2.5 mg inhalation Q6H PRN Wheezing 06/21/24 07/26/24 History (0.083 %) solution for nebulization albuterol sulfate 90 mcg/actuation 2 puff inhalation Q4H PRN Wheezing 06/21/24 07/26/24 History aerosol inhaler dapagliflozin propanediol 10 mg 10 mg PO QAM 06/21/24 07/26/24 History tablet (Farxiga) lisinopril 5 mg tablet 5 mg PO DAILY 06/21/24 07/26/24 History benzonatate 100 mg capsule 100 mg PO Q6H PRN cough #30 caps 06/24/24 07/26/24 Rx polyethylene glycol 3350 17 gram 17 g PO DAILY #100 ea 06/24/24 07/26/24 Rx oral powder packet (Miralax) cefdinir 300 mg capsule 300 mg PO BID 7 days #14 caps 07/25/24 07/26/24 Rx diltiazem HCl 180 mg 180 mg PO QAM 07/26/24 07/26/24 History capsule,extended release 24 hr ferrous sulfate 325 mg (65 mg 325 mg PO QAM 07/26/24 07/26/24 History iron) tablet (Feosol) mirtazapine 15 mg tablet 15 mg PO DAILY 07/26/24 07/26/24 History olanzapine 2.5 mg tablet 2.5 mg PO UD 07/26/24 07/26/24 History ondansetron 8 mg disintegrating 8 mg translingual Q8 PRN Nausea 07/26/24 07/26/24 History tablet And Vomiting oxycodone 5 mg tablet 5 mg PO .EVERY 4-6 HOURS PRN Pain 07/26/24 07/26/24 History pantoprazole 40 mg tablet,delayed 40 mg PO AMHS 07/26/24 07/26/24 History release prochlorperazine maleate 10 mg 10 mg PO Q6 PRN Nausea 07/26/24 07/26/24 History tablet Past Med/Surg History Problem List (Updated 07/25/24 @ 18:38 by Satya Rowell MD) Hypokalemia (Acute) Acute UTI (Acute) GI bleed due to NSAIDs NSAID induced gastritis Reactive thrombocytosis Chronic respiratory failure with hypoxia, on home O2 therapy Hematuria Nicotine dependence with current use Anemia of chronic disease Constipation, chronic Mediastinal mass Metastasis of unknown primary Sepsis Adrenal mass (Acute) Elevated troponin (Acute) GI bleed (Acute) Frequent PVCs (Acute) Heart palpitations (Acute) Hyponatremia Dehydration Influenza A (Acute) COPD exacerbation Acute hypoxic respiratory failure (Acute) T2DM (type 2 diabetes mellitus) Medical History Bilateral pneumonia HLD (hyperlipidemia) Tobacco abuse COPD (chronic obstructive pulmonary disease) Surgical History Hx of cataract extraction Family History Other Diabetes Social History Smoking Status: Current every day smoker Tobacco Type: Cigarettes Cigarettes Per Day: 4; Second Hand Exposure: No; Do You Dip or Chew Tobacco: No; Hx Alcohol Use: No Hx Substance Use: No Preferred Language: Guatemalan Communication Ability: Effective 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 Respiratory: Bilateral wheeze present. Cardiovascular: RRR, no murmur, no edema Vessels: no JVD or carotid bruit Chest: normal inspection of chest Abdomen: normal bowel sounds, soft, nontender, no hepatosplenomegaly. Costovertebral angle nontender. Skin: no rashes, warm and dry normal turgor Neurologic: PERRL, EOMI, accommodation nl, no face palsy, no dysarthria CN's II- XI intact bilaterally and moves all extremities Psychiatric: A+Ox3, euthymic affect Results & Data Results & Data Vital Signs (Past 12 Hours) Vital Signs Pulse Pulse Resp BP BP Pulse Ox O2 Del Method 07/26/24 17:25 87 17 121/60 99 Nasal Cannula 07/26/24 16:29 88 24 121/54 L 99 Nasal Cannula 07/26/24 15:25 89 25 H 131/58 L 100 Nebulizer 07/26/24 15:12 93 H 07/26/24 15:09 86 21 131/58 L 87 L Nasal Cannula 07/26/24 15:09 86 24 100 Nasal Cannula 07/26/24 14:29 92 H 24 119/49 L 100 Nasal Cannula 07/26/24 14:29 92 H 24 119/49 L 100 Nasal Cannula O2 Flow Rate 07/26/24 17:25 3 07/26/24 16:29 3 07/26/24 15:25 5 07/26/24 15:12 07/26/24 15:09 3 07/26/24 15:09 3 07/26/24 14:29 3 07/26/24 14:29 3
[2024-07-26] MEDS ORDERED: GLUCAGON FOR INJ 1 MG VIAL SQ PRN (18:32)
[2024-07-26] MEDS ORDERED: ALBUTEROL HFA 8 GM INHALER INH PRN (18:32)
[2024-07-26] MEDS ORDERED: DEXTROSE 50% 50 ML SYRINGE IV PRN (18:32)
[2024-07-26] MEDS ORDERED: PHARMACY GLYCEMIC MGMT CONSULT PRN (18:32)
[2024-07-26] MEDS ORDERED: GLUCOSE 10 TAB/TUBE PO PRN (18:32)
[2024-07-26] MEDS ORDERED: CARBOHYDRATES FOR HYPOGLYCEMIA PO PRN (18:32)
[2024-07-26] MEDS ORDERED: GLUCOSE 40% GEL 15 GM TUBE PO PRN (18:32)
[2024-07-26] MEDS: SODIUM CHLORIDE 0.9% 1,000 ML IV SCH (19:25)
[2024-07-26] MEDS: ALBUT/IPRATROP 3MG/0.5MG NEB 3 ML VIAL NEB SCH (20:49)
[2024-07-26] MEDS ORDERED: NON-FORMULARY MEDICATION (Fluticasone-Umeclidin-Vilanter [Trelegy Ellipta] 200-62.5-25 mcg INH SCH (21:00)
[2024-07-26] MEDS: INSULIN ASPART PER UNIT CHARGE SC SCH (22:06)
[2024-07-26] MEDS: PANTOprazole 40 MG TAB PO SCH (22:06)
[2024-07-26] MEDS: LANTUS PER UNIT CHARGE SQ SCH (22:06)
[2024-07-26] MEDS: HEPARIN SOD 5,000 UNIT/0.5 ML VIAL SQ SCH (22:07)
[2024-07-27] MEDS: CEFEPIME 2000MG 2,000 MG/20 ML SYR IV SCH (00:33)
[2024-07-27] MEDS: MELATONIN 3 MG TAB PO PRN (02:50)
[2024-07-27] MEDS: PROMETHAZINE 6.25 MG/50.25 ML BAG IV STA (02:50)
[2024-07-27] MEDS: oxyCODONE HCL IR 5 MG TAB (IMMEDIATE RELEASE) PO PRN (02:51)
[2024-07-27 07:20] LABS: Hematocrit (blood only) 27.5 % (37.0-47.0); Hemoglobin 8.3 g/dl (12.0-16.0); Mean Corpuscular Hemoglobin 26.9 pg (25.0-34.0); Mean Corpuscular Hgb Conc 30.2 g/dL (32.0-36.0); Mean Corpuscular Volume 89.3 fL (80.0-100.0); Mean Platelet Volume 10.3 fL (9.4-12.4); Platelet Count 276 K/uL (130-400); RDW Coefficient of Variation 16.4 % (11.5-14.5); RDW Standard Deviation 53.6 fL (36.4-46.3); Red Blood Count 3.08 M/uL (4.20-5.40); White Blood Count 2.91 K/ul (4.8-10.8)
[2024-07-27 07:46] LABS: Albumin Globulin Ratio 0.8 (0.9-2); Albumin Level 2.6 gm/dl (3.4-5.0); Bilirubin,Total 0.3 mg/dl (0.2-1.0); Creatinine Clr Calc Pharmacy 94.3 ml/min; Globulin 3.1 gm/dl (2.5-4.0); Potassium 3.4 mmol/L (3.5-5.1); Total Protein 5.7 gm/dl (6.0-8.3)
[2024-07-27] MEDS: UMECLIDINIUM/VILANTEROL 62.5/25MCG 7 PUFFS/INHALER INH SCH (08:23)
[2024-07-27] MEDS: FLUTICASONE FUROATE 200MCG 14 PUFFS/INHALER INH SCH (08:23)
[2024-07-27 08:24] LABS: Basophils # (auto) 0.03 K/uL (0.00-0.20); Echinocytes 1+; Eosinophils # (auto) 0.15 K/uL (0.00-0.50); Eosinophils % (auto) 5.2 %; Immature Granulocytes # (auto) 0.02 K/uL (0.01-0.20); Immature Granulocytes % (auto) 0.7 %; Lymphocytes # (auto) 0.76 K/uL (1.20-3.40); Lymphocytes % (auto) 26.1 %; Monocytes # (auto) 0.12 K/uL (0.11-0.59); Monocytes % (auto) 4.1 %; Neutrophils # (auto) 1.83 K/uL (1.40-6.50); Neutrophils % (auto) 62.9 %
[2024-07-27] MEDS: MIRTAZAPINE TAB 15 MG TAB PO SCH (08:24)
[2024-07-27] MEDS: dilTIAZem HCL 180 MG CAPCR PO SCH (08:24)
[2024-07-27] MEDS: NICOTINE 14 MG/24 HR PATCH TD SCH (08:24)
[2024-07-27] MEDS: ATORVASTATIN 20 MG TAB PO SCH (08:24)
[2024-07-27] MEDS: POTASSIUM CHLORIDE / WTR 10 MEQ/100 ML PLCT IV SCH (09:02)
[2024-07-27] MEDS: ACETAMINOPHEN 325 MG TAB PO PRN (09:07)
[2024-07-27] MEDS: CEFEPIME 1000MG 1,000 MG/10 ML SYR IV SCH (09:14)
[2024-07-27] MEDS: guaiFENesin 600 MG TABCR PO SCH (10:18)
[2024-07-27] MEDS: LIDOCAINE 5% 1 PATCH TD SCH (10:19)
--- NOTE | 2024-07-27 11:21 | Pharmacy Report ---
Pharmacy Glycemic Short Note 2 - Date of Service July 27, 2024 - Glycemic Short BSG Results (Last 24 hours): 07/26/24 07/26/24 07/26/24 14:55 19:03 20:27 Glucose 118 H POC Glucose 134 H 158 H 07/27/24 07/27/24 06:53 07:54 Glucose 79 POC Glucose 87 OUTPATIENT ANTIDIABETIC REGIMEN: * Metformin ER 1g PO BID * Dapagliflozin 10 mg PO daily A1c = 7.1% ASSESSMENT: * Marlene is a 68 yo T2DM with PMH of metastatic carcinoma of unknown origin(possibly adenocarcinoma of adrenal gland), COPD, anemia, hypertension, hyperlipidemia. Receiving empiric treatment for UTI and bacteremia. She is on oral anti-diabetic agents at home which were held on admission. * Patient received Lantus 15 units SC last evening. Fasting BSG of 87 mg/dL this am. Will decrease basal insulin and add a "zero" dose option. * Acceptable post prandial glycemic control thus far. PLAN FOR INPATIENT GLYCEMIC CONTROL: * Hold outpatient oral diabetes medications * Basal insulin * Lantus 0-7 units SQ HS (7 units for BSG > 140 mg/dL) * Bolus insulin * NovoLog per scale ACHS or Q6hrs while NPO * Goal Range: Low 110 mg/dL - High 140 mg/dL * Correction Factor: 40 mg/dL/unit * Nutritional / Prandial insulin per carb ratio of 1 unit per 15 grams CHO consumed
--- NOTE | 2024-07-27 13:29 | Infectious Disease Consult ---
Date of Service July 27, 2024 Telehealth Information I performed this visit using a real-time telehealth connection between my location and the patients location ([facility]). After connecting through interactive tele-video, patient was identified by name and date of and/or wristband check.Patient (or authorized healthcare u.s. representative) was informed that this was a telemedicine visit and it was being conducted confidentially over secure lines. My office door was closed and no one else was present in the room with me.Patient (or authorized healthcare u.s. representative) provided consent to proceed with the visit, expressed an understanding of privacy and security of the telemedicine visit, and gave permission to have a hospital u.s. representative in the room in order to assist with the visit and to conduct portions of the visit, as needed. I informed the patient (or authorized healthcare u.s. representative) that I reviewed their record and presented the opportunity for them to ask any questions regarding the visit today. The patient agreed to participate. Assessment & Plan (1) Septicemia: (2) Acute UTI: Plan 68-year-old female with a complex medical history, including metastatic carcinoma of unknown origin, diabetes, and hyperlipidemia, who presents with a urinary tract infection (UTI) and bacteremia. The urine culture is positive for E. coli, and the blood culture is positive for Pseudomonas aeruginosa. The source of the Pseudomonas infection is unclear, and the patient is currently being treated with cefepime. 1.Pseudomonas aeruginosa Bacteremia: The patient has a positive blood culture for Pseudomonas aeruginosa. The source of the bacteremia is not clear .patient is currently afebrile and not neutropenic, which is favorable for managing the infection. 2.Urinary Tract Infection: The urine culture is positive for E. coli, indicating a UTI. The burning micturition and generalized weakness are consistent with this diagnosis. 3.Chemotherapy: The recent initiation of chemotherapy could potentially impact the patient's immune status, although she is not currently neutropenic. Continue cefepime at the current dosage to cover for Pseudomonas aeruginosa until susceptibility results are available. If Pseudomonas is susceptible to ciprofloxacin, consider transitioning to high-dose oral ciprofloxacin (750mg po bid) for 2 weeks to complete the course of treatment Follow up on blood culture results to confirm susceptibility and guide antibiotic therapy adjustments. I have seen the patient via televideo alongside Dr. Porter on 07/27/24. I agree with the findings and plan as outlined in this note. Dennis Matta MD History of Present Illness History of Present Illness 68 year female past medical history of metastatic carcinoma of unknown origin possibly adenocarcinoma of adrenal gland, diabetes, hyperlipidemia. Presented to the hospital with generalized weakness and burning micturition, she had recently started chemotherapy on Wednesday, UA was positive, urine culture positive for E coli , blood culture was taken and patient was recommended to stay in the hospital however patient wanted to go home, blood culture 02/11 was positive for Gram-negative bacilli (PCR positive for Pseudomonas aeruginosa), GPCs in clusters and patient was asked to come back to the ED. in ED, she was afebrile, white count 2.91. Currently on cefepime. Allergies Allergy/AdvReac Type Severity Reaction Status Date / Time No Known Allergies Allergy Mild Verified 07/19/24 08:31 Home Medications Medication Instructions Recorded Confirmed Type atorvastatin 20 mg tablet 20 mg PO DAILY 04/08/23 07/26/24 History fluticasone fur. 200 mcg-umeclid 1 inh inhalation QPM 04/08/23 07/26/24 History 62.5 mcg-vilant 25 mcg inhalat.powder (Trelegy Ellipta) fluticasone propionate 50 2 spray intranasal QAM 04/08/23 07/26/24 History mcg/actuation nasal spray,suspension metformin 500 mg tablet,extended 1,000 mg PO BID 04/08/23 07/26/24 History release 24 hr montelukast 10 mg tablet 10 mg PO QAM 04/08/23 07/26/24 History ipratropium 0.5 mg-albuterol 3 mg 3 ml NEB Q6H PRN Shortness Of 04/27/23 07/26/24 History (2.5 mg base)/3 mL nebulization Breath Or Wheezing soln acetaminophen 650 mg 650 mg PO Q8H PRN Pain 06/21/24 07/26/24 History tablet,extended release albuterol sulfate 2.5 mg/3 mL 2.5 mg inhalation Q6H PRN Wheezing 06/21/24 07/26/24 History (0.083 %) solution for nebulization albuterol sulfate 90 mcg/actuation 2 puff inhalation Q4H PRN Wheezing 06/21/24 07/26/24 History aerosol inhaler dapagliflozin propanediol 10 mg 10 mg PO QAM 06/21/24 07/26/24 History tablet (Farxiga) lisinopril 5 mg tablet 5 mg PO DAILY 06/21/24 07/26/24 History benzonatate 100 mg capsule 100 mg PO Q6H PRN cough #30 caps 06/24/24 07/26/24 Rx polyethylene glycol 3350 17 gram 17 g PO DAILY #100 ea 06/24/24 07/26/24 Rx oral powder packet (Miralax) cefdinir 300 mg capsule 300 mg PO BID 7 days #14 caps 07/25/24 07/26/24 Rx diltiazem HCl 180 mg 180 mg PO QAM 07/26/24 07/26/24 History capsule,extended release 24 hr ferrous sulfate 325 mg (65 mg 325 mg PO QAM 07/26/24 07/26/24 History iron) tablet (Feosol) mirtazapine 15 mg tablet 15 mg PO DAILY 07/26/24 07/26/24 History olanzapine 2.5 mg tablet 2.5 mg PO UD 07/26/24 07/26/24 History ondansetron 8 mg disintegrating 8 mg translingual Q8 PRN Nausea 07/26/24 07/26/24 History tablet And Vomiting oxycodone 5 mg tablet 5 mg PO .EVERY 4-6 HOURS PRN Pain 07/26/24 07/26/24 History pantoprazole 40 mg tablet,delayed 40 mg PO AMHS 07/26/24 07/26/24 History release prochlorperazine maleate 10 mg 10 mg PO Q6 PRN Nausea 07/26/24 07/26/24 History tablet Patient History Medical History Bilateral pneumonia HLD (hyperlipidemia) Tobacco abuse COPD (chronic obstructive pulmonary disease) Surgical History Hx of cataract extraction Family History Other Diabetes Social History Smoking Status: Current every day smoker Tobacco Type: Cigarettes Cigarettes Per Day: 4; Second Hand Exposure: No; Do You Dip or Chew Tobacco: No; Hx Alcohol Use: No Hx Substance Use: No Preferred Language: Sami Communication Ability: Effective 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 Results & Data Vital Signs (Past 12 Hours) Vital Signs Temp Pulse Resp BP Pulse Ox O2 Del Method O2 Flow Rate 07/27/24 07:00 36.6 C 85 20 113/63 97 Nasal Cannula 2 Laboratory Results Laboratory Results - last 24 hr 07/26/24 07/26/24 07/26/24 14:55 15:27 17:11 WBC 2.92 L RBC 3.38 L Hgb 9.2 L Hct 29.7 L MCV 87.9 MCH 27.2 MCHC 31.0 L RDW Std Deviation 52.5 H RDW Coeff of Janel 16.3 H Plt Count 343 MPV 10.5 Immature Gran % (Auto) 0.7 Neut % (Auto) 70.9 Lymph % (Auto) 21.2 Crosby % (Auto) 2.4 Eos % (Auto) 3.4 Baso % (Auto) 1.4 Neut # (Auto) 2.07 Lymph # (Auto) 0.62 L Crosby # (Auto) 0.07 L Eos # (Auto) 0.10 Baso # (Auto) 0.04 Immature Gran # (Auto) 0.02 Hyposegmented Neuts 1+ Echinocytes Sodium 138 Potassium 3.2 L Chloride 97 L Carbon Dioxide 30 Anion Gap 11 BUN 11 Creatinine 0.57 L Est Cr Clr Drug Dosing 82.7 eGFR 99.54 BUN/Creatinine Ratio 19.3 Glucose 118 H POC Glucose Lactate 1.1 Calcium 8.7 Magnesium 1.8 Total Bilirubin 0.4 Direct Bilirubin 0.1 AST 17 ALT 9 Alkaline Phosphatase 88 Troponin I High Sens 6.4 Total Protein 6.5 Albumin 2.9 L Globulin Albumin/Globulin Ratio Procalcitonin 0.11 Urine Color Yellow Urine Appearance Clear Urine pH 5.5 Ur Specific [place] 1.021 Urine Protein 1+ H Urine Glucose (UA) 3+ H Urine Ketones 1+ H Urine Blood Negative Urine Nitrite Negative Urine Bilirubin Negative Urine Urobilinogen Negative Ur Leukocyte Esterase 1+ H Urine WBC (Auto) >50 H Urine RBC (Auto) 0-2 U Hyaline Cast (Auto) 3-5 H U Epithel Cells (Auto) 3-5 H Urine Bacteria (Auto) None Seen Urine Comment 07/26/24 07/26/24 07/27/24 19:03 20:27 06:53 WBC 2.91 L RBC 3.08 L Hgb 8.3 L Hct 27.5 L MCV 89.3 MCH 26.9 MCHC 30.2 L RDW Std Deviation 53.6 H RDW Coeff of Janel 16.4 H Plt Count 276 MPV 10.3 Immature Gran % (Auto) 0.7 Neut % (Auto) 62.9 Lymph % (Auto) 26.1 Crosby % (Auto) 4.1 Eos % (Auto) 5.2 Baso % (Auto) 1.0 Neut # (Auto) 1.83 Lymph # (Auto) 0.76 L Crosby # (Auto) 0.12 Eos # (Auto) 0.15 Baso # (Auto) 0.03 Immature Gran # (Auto) 0.02 Hyposegmented Neuts Echinocytes 1+ Sodium 139 Potassium 3.4 L Chloride 102 Carbon Dioxide 30 Anion Gap 7 BUN 10 Creatinine 0.50 L Est Cr Clr Drug Dosing 94.3 eGFR 102.73 BUN/Creatinine Ratio 20.0 Glucose 79 POC Glucose 134 H 158 H Lactate Calcium 8.0 L Magnesium Total Bilirubin 0.3 Direct Bilirubin AST 16 ALT 8 Alkaline Phosphatase 71 Troponin I High Sens Total Protein 5.7 L Albumin 2.6 L Globulin 3.1 Albumin/Globulin Ratio 0.8 L Procalcitonin Urine Color Urine Appearance Urine pH Ur Specific [place] Urine Protein Urine Glucose (UA) Urine Ketones Urine Blood Urine Nitrite Urine Bilirubin Urine Urobilinogen Ur Leukocyte Esterase Urine WBC (Auto) Urine RBC (Auto) U Hyaline Cast (Auto) U Epithel Cells (Auto) Urine Bacteria (Auto) Urine Comment 07/27/24 07/27/24 07:54 11:25 WBC RBC Hgb Hct MCV MCH MCHC RDW Std Deviation RDW Coeff of Janel Plt Count MPV Immature Gran % (Auto) Neut % (Auto) Lymph % (Auto) Crosby % (Auto) Eos % (Auto) Baso % (Auto) Neut # (Auto) Lymph # (Auto) Crosby # (Auto) Eos # (Auto) Baso # (Auto) Immature Gran # (Auto) Hyposegmented Neuts Echinocytes Sodium Potassium Chloride Carbon Dioxide Anion Gap BUN Creatinine Est Cr Clr Drug Dosing eGFR BUN/Creatinine Ratio Glucose POC Glucose 87 120 H Lactate Calcium Magnesium Total Bilirubin Direct Bilirubin AST ALT Alkaline Phosphatase Troponin I High Sens Total Protein Albumin Globulin Albumin/Globulin Ratio Procalcitonin Urine Color Urine Appearance Urine pH Ur Specific [place] Urine Protein Urine Glucose (UA) Urine Ketones Urine Blood Urine Nitrite Urine Bilirubin Urine Urobilinogen Ur Leukocyte Esterase Urine WBC (Auto) Urine RBC (Auto) U Hyaline Cast (Auto) U Epithel Cells (Auto) Urine Bacteria (Auto) Urine Comment Diagnostic Findings Chest X-Ray 07/26/24 15:09 XR chest 1V portable CLINICAL HISTORY: cough COMPARISON STUDY: 07/25/2024 FINDINGS: Heart size and pulmonary vasculature are normal. No consolidation or pleural effusion seen. No pneumothorax. IMPRESSION: No pneumonia seen. ACT 112: Negative or not required by law. Electronically signed by: Jeremi Ascencio M.D. 07/26/2024 3:48 PM
--- NOTE | 2024-07-27 15:11 | Hospitalist Progress Note ---
Date of Service July 27, 2024 Assessment & Plan (1) Acute UTI: (2) Chronic respiratory failure with hypoxia, on home O2 therapy: (3) Sepsis: Plan Ms. Vargas is a 68-year-old woman with history of metastatic carcinoma of unknown origin, diabetes, COPD, chronic hypoxic resp failure, and hyperlipidemia, who presented to ED due to generalized weakness and report of ED blood culture being positive from 07/25. The blood culture was positive for pseudomonas and GPC (likely contaminant), urine was positive for e coli and pseudomonas. Patient to continue on cefepime for now. #Sepsis 2/2 pseudomonal bacteremia #acute complicated UTI UA + for pseudomonas and e coli / blood cx positive for pseudomonas continue cefepime ID consulted: plan for possible transitioned to high dose ciprofloxacin po for total 14 days PT/OT #immunocompromised 2/2 chemotherapy #bicytopenia iso chemotherapy and sepsis no neutropenia CTM cbc w/ diff #Hypokalemia continue potassium supplement daily #COPD on chronic oxygen 2L at baseline start mucinex requested nebs to be prn #Hypertensioncontinue on home meds #Hyperlipidemiacontinue on home med #Type 2 diabetes mellituscontinue on insulin #history of PVCscontinue on Cardizem Full code DVT prophylaxis heparin Admission and Anticipated Discharge Date Admission Date: July 26, 2024 Subjective Reports feeling tired States that she is feeling much improved from yesterday, but just weak reports some coccyx discomfort in the bed, feeling better after repositioning Denies any nausea, vomiting, chest pain or other acute concerns reports poor appetite, but drinking sufficiently Physical Exam Constitutional: WD/WN, vitals as above Respiratory: scattered wheeze and rhonchi, no distress, reports chronic sputum production and cough, stable 2L Gastrointestinal (Abdomen): normal bowel sounds, soft, nontender, no hepatosplenomegaly Results & Data Results & Data Vital Signs (Past 12 Hours) Vital Signs Temp Pulse Resp BP Pulse Ox O2 Del Method O2 Flow Rate 07/27/24 14:39 36.6 C 80 16 103/58 L 95 Nasal Cannula 2 07/27/24 07:00 36.6 C 85 20 113/63 97 Nasal Cannula 2 Laboratory Results Short CBC 07/27/24 Range/Units 06:53 WBC 2.91 L (4.8-10.8) K/ul Hgb 8.3 L (12.0-16.0) g/dl Hct 27.5 L (37.0-47.0) % Plt Count 276 (130-400) K/uL BMP 07/26/24 07/27/24 14:55 06:53 Sodium 138 139 Potassium 3.2 L 3.4 L Chloride 97 L 102 Carbon Dioxide 30 30 BUN 11 10 Creatinine 0.57 L 0.50 L Glucose 118 H 79 Calcium 8.7 8.0 L Liver Function 07/26/24 07/27/24 Range/Units 14:55 06:53 Total Bilirubin 0.4 0.3 (0.2-1.0) mg/dl Direct Bilirubin 0.1 (0-0.2) mg/dl AST 17 16 (13-39) U/L ALT 9 8 (7-52) U/L Alkaline Phosphatase 88 71 (34-104) U/L Albumin 2.9 L 2.6 L (3.4-5.0) gm/dl Urine 07/26/24 Range/Units 17:11 Urine Color Yellow Urine Appearance Clear (Clear) Urine pH 5.5 (4.5-7.5) Ur Specific [place] 1.021 (1.000-1.030) Urine Protein 1+ H (Negative) Urine Glucose (UA) 3+ H (Negative) Medications Administered Home Medications Medication Instructions Recorded Confirmed Last Taken atorvastatin 20 mg tablet 20 mg PO DAILY 04/08/23 07/26/24 07/26/24 fluticasone fur. 200 mcg-umeclid 1 inh inhalation QPM 04/08/23 07/26/24 07/25/24 62.5 mcg-vilant 25 mcg inhalat.powder (Trelegy Ellipta) fluticasone propionate 50 2 spray intranasal [facility] 04/08/23 07/26/24 06/21/24 mcg/actuation nasal spray,suspension metformin 500 mg tablet,extended 1,000 mg PO BID 04/08/23 07/26/24 06/21/24 08:00 release 24 hr montelukast 10 mg tablet 10 mg PO QA 04/08/23 07/26/24 06/21/24 ipratropium 0.5 mg-albuterol 3 mg 3 ml NEB Q6H PRN Shortness Of 04/27/23 07/26/24 Unknown (2.5 mg base)/3 mL nebulization Breath Or Wheezing soln acetaminophen 650 mg 650 mg PO Q8H PRN Pain 06/21/24 07/26/24 Unknown tablet,extended release albuterol sulfate 2.5 mg/3 mL 2.5 mg inhalation Q6H PRN Wheezing 06/21/24 07/26/24 Unknown (0.083 %) solution for nebulization albuterol sulfate 90 mcg/actuation 2 puff inhalation Q4H PRN Wheezing 06/21/24 07/26/24 Unknown aerosol inhaler dapagliflozin propanediol 10 mg 10 mg PO QAM 06/21/24 07/26/24 06/21/24 tablet (Farxiga) lisinopril 5 mg tablet 5 mg PO DAILY 06/21/24 07/26/24 Unknown benzonatate 100 mg capsule 100 mg PO Q6H PRN cough #30 caps 06/24/24 07/26/24 Unknown polyethylene glycol 3350 17 gram 17 g PO DAILY #100 ea 06/24/24 07/26/24 Unknown oral powder packet (Miralax) cefdinir 300 mg capsule 300 mg PO BID 7 days #14 caps 07/25/24 07/26/24 Unknown diltiazem HCl 180 mg 180 mg PO QAM 07/26/24 07/26/24 07/26/24 capsule,extended release 24 hr ferrous sulfate 325 mg (65 mg 325 mg PO QAM 07/26/24 07/26/24 Unknown iron) tablet (Feosol) mirtazapine 15 mg tablet 15 mg PO DAILY 07/26/24 07/26/24 Unknown olanzapine 2.5 mg tablet 2.5 mg PO UD 07/26/24 07/26/24 Unknown ondansetron 8 mg disintegrating 8 mg translingual Q8 PRN Nausea 07/26/24 07/26/24 Unknown tablet And Vomiting oxycodone 5 mg tablet 5 mg PO .EVERY 4-6 HOURS PRN Pain 07/26/24 07/26/24 Unknown pantoprazole 40 mg tablet,delayed 40 mg PO AMHS 07/26/24 07/26/24 07/26/24 release prochlorperazine maleate 10 mg 10 mg PO Q6 PRN Nausea 07/26/24 07/26/24 Unknown tablet Active Medications Generic Name Dose Route Start Last Admin Trade Name Freq PRN Reason Stop Dose Admin Acetaminophen 650 mg 07/26/24 18:32 07/27/24 09:07 Acetaminophen 325 Mg Tab PO 08/25/24 18:31 650 mg Q4H PRN Administration pain/fever Atorvastatin Calcium 20 mg 07/27/24 09:00 07/27/24 08:24 Atorvastatin 20 Mg Tab PO 08/26/24 08:59 20 mg DAILY LEANDRO Administration Diltiazem HCl 180 mg 07/27/24 09:00 07/27/24 08:24 Diltiazem Hcl 180 Mg Capcr PO 08/26/24 08:59 180 mg DAILY LEANDRO Administration Fluticasone Furoate 1 puffs 07/27/24 09:00 07/27/24 08:23 Fluticasone Furoate 200mcg 14 Puffs/Inhaler INH 08/26/24 08:59 1 puffs DAILY LEANDRO Administration Guaifenesin 1,200 mg 07/27/24 09:15 07/27/24 10:18 Guaifenesin 600 Mg Tabcr PO 08/26/24 09:14 1,200 mg Q12 LEANDRO Administration Heparin Sodium (Porcine) 5,000 units 07/26/24 22:00 07/27/24 05:30 Heparin Sod 5,000 Unit/0.5 Ml Vial SQ 08/25/24 21:59 5,000 units Q8 LEANDRO Administration Cefepime HCl 2,000 mg in 20 mls @ 5 mls/min 07/27/24 00:00 07/27/24 08:48 Maxipime 2000mg IV 08/06/24 00:00 5 mls/min Q8H LEANDRO Administration Protocol Sodium Chloride 1,000 mls @ 80 mls/hr 07/26/24 18:32 07/27/24 12:48 Nss IV 07/29/24 18:31 0 mls/hr .[id number] LEANDRO Infusion Insulin Aspart 0 units 07/26/24 21:00 07/27/24 12:41 Insulin Aspart Per Unit Charge SC 08/25/24 20:59 Not Given ACHS LEANDRO Lidocaine 1 patch 07/27/24 09:15 07/27/24 10:19 Lidocaine 5% 1 Patch TD 08/26/24 09:14 1 patch QAM LEANDRO Administration Melatonin 3 mg 07/27/24 02:18 07/27/24 02:50 Melatonin 3 Mg Tab PO 08/26/24 02:17 3 mg HS PRN Administration Sleep Mirtazapine 15 mg 07/27/24 09:00 07/27/24 08:24 Mirtazapine Tab 15 Mg Tab PO 08/26/24 08:59 15 mg DAILY LEANDRO Administration Miscellaneous 1 each 07/27/24 08:59 07/27/24 08:25 Remove Nicoderm Patch N/A 08/26/24 08:58 Not Given DAILY@0859 LEANDRO Nicotine 1 patch 07/27/24 09:00 07/27/24 08:24 Nicotine 14 Mg/24 Hr Patch TD 08/26/24 08:59 1 patch QAM LEANDRO Administration Oxycodone HCl 5 mg 07/26/24 18:32 07/27/24 02:51 Oxycodone Hcl Ir 5 Mg Tab (Immediate Release) PO 08/09/24 18:31 5 mg Q4H PRN Administration Pain Pantoprazole Sodium 40 mg 07/26/24 21:00 07/27/24 08:24 Pantoprazole 40 Mg Tab PO 08/25/24 20:59 40 mg BID LEANDRO Administration Potassium Chloride 40 meq 07/26/24 16:30 07/27/24 10:19 Potassium Chloride Pwd 20 Meq Pack PO 08/25/24 16:29 40 meq QAM LEANDRO Administration Umeclidinium/Vilanterol 1 puffs 07/27/24 09:00 07/27/24 08:23 Umeclidinium/Vilanterol 62.5/25mcg 7 Puffs/Inhaler INH 08/26/24 08:59 1 puffs DAILY LEANDRO Administration
[2024-07-27] MEDS: ALBUT/IPRATROP 3MG/0.5MG NEB 3 ML VIAL NEB PRN (18:42)
[2024-07-27] MEDS: LANTUS PER UNIT CHARGE SQ SCH (20:50)
--- NOTE | 2024-07-28 06:18 | Electrocardiogram Report ---
Test Reason : Blood Pressure : */* mmHG Vent. Rate : 93 BPM Atrial Rate : 93 BPM P-R Int : 156 ms QRS Dur : 98 ms QT Int : 360 ms P-R-T Axes : 77 48 58 degrees QTcB Int : 447 ms Normal sinus rhythm Normal ECG When compared with ECG of 25-Jul-2024 14:49, No significant change was found Confirmed by Wallace Adams ([id number]) on 07/28/2024 6:18:19 AM Referred By: REFERRED SELF Confirmed By: Wallace Adams
[2024-07-28 06:26] LABS: Hematocrit (blood only) 28.1 % (37.0-47.0); Hemoglobin 8.4 g/dl (12.0-16.0); Mean Corpuscular Hemoglobin 26.6 pg (25.0-34.0); Mean Corpuscular Hgb Conc 29.9 g/dL (32.0-36.0); Mean Corpuscular Volume 88.9 fL (80.0-100.0); Mean Platelet Volume 10.2 fL (9.4-12.4); Platelet Count 278 K/uL (130-400); RDW Coefficient of Variation 16.4 % (11.5-14.5); RDW Standard Deviation 53.7 fL (36.4-46.3); Red Blood Count 3.16 M/uL (4.20-5.40); White Blood Count 2.59 K/ul (4.8-10.8)
[2024-07-28 06:44] LABS: Creatinine Clr Calc Pharmacy 117.9 ml/min; Magnesium 1.4 mg/dl (1.7-2.4); Phosphorus 3.4 mg/dl (2.5-4.9); Potassium 3.9 mmol/L (3.5-5.1)
--- NOTE | 2024-07-28 08:29 | Pharmacy Report ---
Pharmacy Glycemic Short Note 2 - Date of Service July 28, 2024 - Glycemic Short BSG Results (Last 24 hours): 07/27/24 07/27/24 07/27/24 11:25 16:10 19:58 Glucose POC Glucose 120 H 104 H 144 H 07/28/24 07/28/24 05:53 07:13 Glucose 109 H POC Glucose 113 H OUTPATIENT ANTIDIABETIC REGIMEN: * Metformin ER 1g PO BID * Dapagliflozin 10 mg PO daily A1c = 7.1% ASSESSMENT: 07/28: * Patient received 8 units of insulin yesterday, 7 of which were basal. BSGs were [phone] mg/dL. * Fasting BSG improved to 113 mg/dL this AM. Continue with current basal dose. * Tolerating a diet but not eating much. Will monitor. Remains on Cefepime. No change to Novolog today. 07/27: * Marlene is a 68 yo T2DM with PMH of metastatic carcinoma of unknown origin(possibly adenocarcinoma of adrenal gland), COPD, anemia, hypertension, hyperlipidemia. Receiving empiric treatment for UTI and bacteremia. She is on oral anti-diabetic agents at home which were held on admission. * Patient received Lantus 15 units SC last evening. Fasting BSG of 87 mg/dL this am. Will decrease basal insulin and add a "zero" dose option. * Acceptable post prandial glycemic control thus far. PLAN FOR INPATIENT GLYCEMIC CONTROL: * Hold outpatient oral diabetes medications * Basal insulin * Lantus 7 units SC HS * Bolus insulin * NovoLog per scale ACHS or Q6hrs while NPO * Goal Range: Low 110 mg/dL - High 140 mg/dL * Correction Factor: 40 mg/dL/unit * Nutritional / Prandial insulin per carb ratio of 1 unit per 15 grams CHO consumed
[2024-07-28] MEDS: MAGNESIUM SULFATE / D5W 1 GM/100 ML BAG IV SCH (08:58)
[2024-07-28 10:51] LABS: C. diff 027-NAP1-BI NEGATIVE; Cdiff Toxin B Gene (2yr or >) Negative Cdiff Gene (Neg)
[2024-07-28] MEDS: ONDANSETRON INJ 2 MG/ML 2 ML VIAL IV STA (12:01)
--- NOTE | 2024-07-28 14:12 | Hospitalist Progress Note ---
Date of Service July 28, 2024 Assessment & Plan (1) Acute UTI: (2) Chronic respiratory failure with hypoxia, on home O2 therapy: (3) Sepsis: Plan Ms. Vargas is a 68-year-old woman with history of metastatic carcinoma of unknown origin, diabetes, COPD, chronic hypoxic resp failure, and hyperlipidemia, who presented to ED due to generalized weakness and report of ED blood culture being positive from 07/25. The blood culture was positive for pseudomonas and GPC (likely contaminant), urine was positive for e coli and pseudomonas. Patient to continue on cefepime for now. #Sepsis 2/2 pseudomonal bacteremia #acute complicated UTI UA + for pseudomonas and e coli / blood cx positive for pseudomonas continue cefepime for now, ID consulted: transition to ciprofloxacin 750mgbid for total 14 days upon d/c PT/OT:home with home health #immunocompromised 2/2 chemotherapy #bicytopenia iso chemotherapy and sepsis no neutropenia CTM cbc w/ diff #Hypokalemia continue potassium supplement daily #COPD on chronic hypoxic resp failure 2L at baseline continue mucinex requested nebs to be prn #Hypertensioncontinue on home meds #Hyperlipidemiacontinue on home med #Type 2 diabetes mellituscontinue on insulin #history of PVCscontinue on Cardizem Full code DVT prophylaxis heparin Admission and Anticipated Discharge Date Admission Date: July 26, 2024 Subjective NAEO Reports feeling much better but noting some nausea this am states she is getting herself to the bathroom and that she will not go to rehab and wishes to continue home health services Denies any sob, chest pain, fevers or chills Physical Exam Constitutional: WD/WN, vitals as above Respiratory: scattered rhonchi cleared with cough Cardiovascular: RRR, no murmur, no edema Gastrointestinal (Abdomen): normal bowel sounds, soft, nontender, no hepatosplenomegaly Musculoskeletal: no cyanosis or clubbing, extremities motor strength 5/5 Results & Data Results & Data Vital Signs (Past 12 Hours) Vital Signs Temp Pulse Resp BP Pulse Ox Pulse Ox O2 Del Method 07/28/24 12:46 91 07/28/24 10:13 96 07/28/24 08:39 89 131/68 07/28/24 07:30 Nasal Cannula 07/28/24 07:15 36.4 C L 98 H 20 131/71 95 Nasal Cannula O2 Flow Rate O2 Flow Rate 07/28/24 12:46 2 07/28/24 10:13 07/28/24 08:39 07/28/24 07:30 2 07/28/24 07:15 2 Laboratory Results Short CBC 07/28/24 Range/Units 05:53 WBC 2.59 L (4.8-10.8) K/ul Hgb 8.4 L (12.0-16.0) g/dl Hct 28.1 L (37.0-47.0) % Plt Count 278 (130-400) K/uL BMP 07/28/24 05:53 Sodium 138 Potassium 3.9 Chloride 104 Carbon Dioxide 29 BUN 8 Creatinine 0.40 L Glucose 109 H Calcium 8.0 L Medications Administered Home Medications Medication Instructions Recorded Confirmed Last Taken atorvastatin 20 mg tablet 20 mg PO DAILY 04/08/23 07/26/24 07/26/24 fluticasone fur. 200 mcg-umeclid 1 inh inhalation QPM 04/08/23 07/26/24 07/25/24 62.5 mcg-vilant 25 mcg inhalat.powder (Trelegy Ellipta) fluticasone propionate 50 2 spray intranasal QAM 04/08/23 07/26/24 06/21/24 mcg/actuation nasal spray,suspension metformin 500 mg tablet,extended 1,000 mg PO BID 04/08/23 07/26/24 06/21/24 08:00 release 24 hr montelukast 10 mg tablet 10 mg PO QAM 04/08/23 07/26/24 06/21/24 ipratropium 0.5 mg-albuterol 3 mg 3 ml NEB Q6H PRN Shortness Of 04/27/23 07/26/24 Unknown (2.5 mg base)/3 mL nebulization Breath Or Wheezing soln acetaminophen 650 mg 650 mg PO Q8H PRN Pain 06/21/24 07/26/24 Unknown tablet,extended release albuterol sulfate 2.5 mg/3 mL 2.5 mg inhalation Q6H PRN Wheezing 06/21/24 07/26/24 Unknown (0.083 %) solution for nebulization albuterol sulfate 90 mcg/actuation 2 puff inhalation Q4H PRN Wheezing 06/21/24 07/26/24 Unknown aerosol inhaler dapagliflozin propanediol 10 mg 10 mg PO QAM 06/21/24 07/26/24 06/21/24 tablet (Farxiga) lisinopril 5 mg tablet 5 mg PO DAILY 06/21/24 07/26/24 Unknown benzonatate 100 mg capsule 100 mg PO Q6H PRN cough #30 caps 06/24/24 07/26/24 Unknown polyethylene glycol 3350 17 gram 17 g PO DAILY #100 ea 06/24/24 07/26/24 Unknown oral powder packet (Miralax) cefdinir 300 mg capsule 300 mg PO BID 7 days #14 caps 07/25/24 07/26/24 Unknown diltiazem HCl 180 mg 180 mg PO QAM 07/26/24 07/26/24 07/26/24 capsule,extended release 24 hr ferrous sulfate 325 mg (65 mg 325 mg PO QAM 07/26/24 07/26/24 Unknown iron) tablet (Feosol) mirtazapine 15 mg tablet 15 mg PO DAILY 07/26/24 07/26/24 Unknown olanzapine 2.5 mg tablet 2.5 mg PO UD 07/26/24 07/26/24 Unknown ondansetron 8 mg disintegrating 8 mg translingual Q8 PRN Nausea 07/26/24 07/26/24 Unknown tablet And Vomiting oxycodone 5 mg tablet 5 mg PO .EVERY 4-6 HOURS PRN Pain 07/26/24 07/26/24 Unknown pantoprazole 40 mg tablet,delayed 40 mg PO AMHS 07/26/24 07/26/24 07/26/24 release prochlorperazine maleate 10 mg 10 mg PO Q6 PRN Nausea 07/26/24 07/26/24 Unknown tablet Active Medications Generic Name Dose Route Start Last Admin Trade Name Freq PRN Reason Stop Dose Admin Acetaminophen 650 mg 07/26/24 18:32 07/27/24 15:37 Acetaminophen 325 Mg Tab PO 08/25/24 18:31 650 mg Q4H PRN Administration pain/fever Albuterol 3 ml 07/27/24 12:19 07/27/24 18:42 Albut/Ipratrop 3mg/0.5mg Neb 3 Ml Vial NEB 08/25/24 18:59 3 ml Q6R PRN Administration Shortness Of Breath Or Wheezing Protocol Atorvastatin Calcium 20 mg 07/27/24 09:00 07/28/24 08:41 Atorvastatin 20 Mg Tab PO 08/26/24 08:59 20 mg DAILY LEANDRO Administration Diltiazem HCl 180 mg 07/27/24 09:00 07/28/24 08:41 Diltiazem Hcl 180 Mg Capcr PO 08/26/24 08:59 180 mg DAILY LEANDRO Administration Fluticasone Furoate 1 puffs 07/27/24 09:00 07/28/24 08:45 Fluticasone Furoate 200mcg 14 Puffs/Inhaler INH 08/26/24 08:59 1 puffs DAILY LEANDRO Administration Guaifenesin 1,200 mg 07/27/24 09:15 07/28/24 08:42 Guaifenesin 600 Mg Tabcr PO 08/26/24 09:14 1,200 mg Q12 LEANDRO Administration Heparin Sodium (Porcine) 5,000 units 07/26/24 22:00 07/28/24 05:52 Heparin Sod 5,000 Unit/0.5 Ml Vial SQ 08/25/24 21:59 5,000 units Q8 LEANDRO Administration Cefepime HCl 2,000 mg in 20 mls @ 5 mls/min 07/27/24 00:00 07/28/24 10:23 Maxipime 2000mg IV 08/06/24 00:00 5 mls/min Q8H LEANDRO Administration Protocol Magnesium Sulfate/Dextrose 1 gm in 100 mls @ 50 mls/hr 07/28/24 08:00 07/28/24 12:48 Magnesium Sulfate / D5w IV 07/28/24 17:59 50 mls/hr Q2H LEANDRO Administration Insulin Aspart 0 units 07/26/24 21:00 07/28/24 12:11 Insulin Aspart Per Unit Charge SC 08/25/24 20:59 2 units ACHS LEANDRO Administration Lidocaine 1 patch 07/27/24 09:15 07/28/24 08:47 Lidocaine 5% 1 Patch TD 08/26/24 09:14 1 patch QAM LEANDRO Administration Melatonin 3 mg 07/27/24 02:18 07/27/24 21:04 Melatonin 3 Mg Tab PO 08/26/24 02:17 3 mg HS PRN Administration Sleep Mirtazapine 15 mg 07/27/24 09:00 07/28/24 08:42 Mirtazapine Tab 15 Mg Tab PO 08/26/24 08:59 15 mg DAILY LEANDRO Administration Miscellaneous 1 each 07/27/24 08:59 07/28/24 08:43 Remove Nicoderm Patch N/A 08/26/24 08:58 1 each DAILY@0859 LEANDRO Administration Miscellaneous 1 each 07/27/24 21:00 07/27/24 21:04 Remove Lidoderm Patch N/A 08/26/24 20:59 1 each DAILY@2100 LEANDRO Administration Nicotine 1 patch 07/27/24 09:00 07/28/24 08:44 Nicotine 14 Mg/24 Hr Patch TD 08/26/24 08:59 1 patch QAM LEANDRO Administration Oxycodone HCl 5 mg 07/26/24 18:32 07/27/24 21:02 Oxycodone Hcl Ir 5 Mg Tab (Immediate Release) PO 08/09/24 18:31 5 mg Q4H PRN Administration Pain Pantoprazole Sodium 40 mg 07/26/24 21:00 07/28/24 08:42 Pantoprazole 40 Mg Tab PO 08/25/24 20:59 40 mg BID LEANDRO Administration Potassium Chloride 40 meq 07/26/24 16:30 07/28/24 08:49 Potassium Chloride Pwd 20 Meq Pack PO 08/25/24 16:29 40 meq QAM LEANDRO Administration Umeclidinium/Vilanterol 1 puffs 07/27/24 09:00 07/28/24 08:46 Umeclidinium/Vilanterol 62.5/25mcg 7 Puffs/Inhaler INH 08/26/24 08:59 1 puffs DAILY LEANDRO Administration
[2024-07-28] MEDS: PROMETHAZINE 6.25 MG/50.25 ML BAG IV PRN (21:11)
[2024-07-28] MEDS: LANTUS PER UNIT CHARGE SQ SCH (21:35)
[2024-07-29 06:29] LABS: Hemoglobin 8.8 g/dl (12.0-16.0); Mean Corpuscular Hemoglobin 27.2 pg (25.0-34.0); Mean Corpuscular Hgb Conc 31.4 g/dL (32.0-36.0); Mean Corpuscular Volume 86.4 fL (80.0-100.0); Mean Platelet Volume 9.9 fL (9.4-12.4); Platelet Count 303 K/uL (130-400); RDW Coefficient of Variation 16.3 % (11.5-14.5); RDW Standard Deviation 51.7 fL (36.4-46.3); Red Blood Count 3.24 M/uL (4.20-5.40); White Blood Count 2.11 K/ul (4.8-10.8)
[2024-07-29 06:51] LABS: BUN Creatinine Ratio 15.2 (10-20); Calcium 8.4 mg/dl (8.6-10.3); Creatinine Clr Calc Pharmacy 102.5 ml/min; Magnesium 2.1 mg/dl (1.7-2.4); Phosphorus 3.2 mg/dl (2.5-4.9); Potassium 3.8 mmol/L (3.5-5.1)
[2024-07-29 07:20] VITALS: BP 108/55; PULSE 80; RESP 20; TEMP 98.1; O2SAT 94
--- NOTE | 2024-07-29 11:31 | Discharge Summary ---
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 She had recently started chemotherapy on Wednesday. Urinalysis was suggestive of UTI. Blood culture was obtained and patient was recommended inpatient stay. However, patient wanted to go home. Blood culture 1 out of 4 was positive for gram-negative bacilli and patient was asked to come back to the ED. Patient denies fever, chills, chest pain, shortness of breath or abdominal pain. She does report some burning micturition and increased urgency. On presentation to the ED, she was afebrile, normotensive and saturating at 3 L of nasal cannula; reports that is her baseline. Admission Exam Per Admitting Provider On physical examination; Constitutional: Awake alert oriented x 3. Respiratory: Bilateral wheeze present. Cardiovascular: RRR, no murmur, no edema Vessels: no JVD or carotid bruit Chest: normal inspection of chest Abdomen: normal bowel sounds, soft, nontender, no hepatosplenomegaly. Costovertebral angle nontender. Skin: no rashes, warm and dry normal turgor Neurologic: PERRL, EOMI, accommodation nl, no face palsy, no dysarthria CN's II- XI intact bilaterally and moves all extremities Psychiatric: A+Ox3, euthymic affect Principal Diagnosis Sepsis 2/2 pseudomonal bacteremia acute complicated UTI immunocompromised 2/2 chemotherapy bicytopenia COPD on chronic hypoxic resp failure Discharge Exam Constitutional: WD/WN, vitals as above Respiratory: CTA, no wheezes. on 2L NC O2 Cardiovascular: RRR, no murmur, no edema Gastrointestinal (Abdomen): normal bowel sounds, soft, nontender, no hepatosplenomegaly Musculoskeletal: no cyanosis or clubbing, extremities motor strength 5/5 Discharge Data Allergies Allergy/AdvReac Type Severity Reaction Status Date / Time No Known Allergies Allergy Mild Verified 07/19/24 08:31 Consultations 07/26/24 16:25 ED Decision to Admit Stat 07/26/24 18:32 Consult Infectious Diseases Routine Hospital Course (1) Acute UTI: (2) Chronic respiratory failure with hypoxia, on home O2 therapy: (3) Sepsis: Plan Per prior attending with addendum: Ms. Vargas is a 68-year-old woman with history of metastatic carcinoma of unknown origin, diabetes, COPD, chronic hypoxic resp failure, and hyperlipidemia, who presented to ED due to generalized weakness and report of ED blood culture being positive from 07/25. The blood culture was positive for pseudomonas and GPC (likely contaminant), urine was positive for e coli and pseudomonas. Patient to continue on cefepime for now. #Sepsis 2/2 pseudomonal bacteremia #acute complicated UTI UA + for pseudomonas and e coli 1/4 blood cx positive for pseudomonas continue cefepime for now, ID consulted: transition to ciprofloxacin 750mgbid for total 14 days upon d/c PT/OT:home with home health #immunocompromised 2/2 chemotherapy #bicytopenia iso chemotherapy and sepsis no neutropenia CTM cbc w/ diff #Hypokalemia continue potassium supplement daily #COPD on chronic hypoxic resp failure 2L at baseline continue mucinex requested nebs to be prn #Hypertensioncontinue on home meds #Hyperlipidemiacontinue on home med #Type 2 diabetes mellituscontinue on insulin #history of PVCscontinue on Cardizem Full code DVT prophylaxis heparin Addendum 07/29/2024: Patient seen and examined at bedside as a follow-up of bacteremia and acute UTI. ID has evaluated, patient is being transitioned to Cipro 750 Mg twice daily to complete 14 days therapy from the date of negative blood culture. Patient reports she is back to her baseline strength and would like to go home. Patient still complains of metallic test and has been trying her best to eat small volume at a time but frequently. Encouraged patient to continue to have frequent meals if she is not able to take adequate food at a time. Patient has been afebrile and is hemodynamically stable. Pt's dtr joi was given phone call and communicated instructions below. Patient will be discharged with following instructions at the point of discharge: Follow-up with your primary care physician within a week time and likely you will need labs CBC/CMP/magnesium/phosphorus. You were evaluated for urinary infection and blood infection, ID physician evaluated you. You will be discharged on antibiotic to complete 14 days therapy from the date of negative blood culture. Continue to follow-up with oncology as prior. Because your potassium level were on the lower side while in hospital, you have been started on small dose of potassium supplement daily. You will need repeat labs within a week time/ongoing monitoring at your PCP office upon discharge. Coordinate with your PCP office to set up the test. Also recommend that you get weekly EKG while on ciprofloxacin to monitor QTc. Coordinate with your PCP office to set up the test. Take your medications as prescribed. Please make sure that you are able to get your medications today by calling your pharmacy before you leave the hospital so that your treatment continuity is not broken. Home Health Attestation I certify that this patient is under my care and that I, or a physicians talent assistant working with me, had a face to-face encounter that meets the home health [id number] encounter requirements with this patient. The encounter with the patient was in whole, or in part, for the following medical condition, which is the primary reason for home health care (list medical condition): I certify that, based on my findings, the following services are medically necessary home health services: My clinical findings support the need for the above services because: Further, I certify that my clinical findings support that this patient is homebound (i.e. absences from home require considerable and taxing effort and are for medical reasons or druze services or infrequently or of short duration when for other reasons) because: Transportation Assistance/Unable to Leave Home Unassisted Certification for Home Health Services: Based on the above findings, I certify that this patient is confined to the home and needs intermittent fci care, physical therapy and/or speech therapy or continues to need occupational therapy. The patient is under my care, and I have initiated the establishment of the plan of care. This patient will be followed by a physician who will periodically review the plan of care. Total Time Total Time Spent Total Time Spent (In Minutes): 45 Discharge Plan Discharge Items Patient Disposition: Home - Home Health Services Reason For Visit: BACTEREMIA Discharge Diagnosis: Sepsis 2/2 pseudomonal bacteremia acute complicated UTI immunocompromised 2/2 chemotherapy bicytopenia COPD on chronic hypoxic resp failure Condition on Discharge: Fair Activity: Resume your previous activity Activity Comment: Continue with home health physical therapy. Non-emergency contact: Primary Care Provider Call non-emergency contact if: you have any medication questions and your symptoms worsen Follow-up/Referrals: Kandace Braxton MD [Primary Care Provider] - (Date & Time 08/04/2024 10:00 AM Provider: Kandace Braxton MD [facility], [facility]) Diet: Carb Consistent or DM2 Diet Texture: Mechanical soft (ground) Addtl Attending Provider Instructions: Follow-up with your primary care physician within a week time and likely you will need labs CBC/CMP/magnesium/phosphorus. You were evaluated for urinary infection and blood infection, ID physician evaluated you. You will be discharged on antibiotic to complete 14 days therapy from the date of negative blood culture. Continue to follow-up with oncology as prior. Because your potassium level were on the lower side while in hospital, you have been started on small dose of potassium supplement daily. You will need repeat labs within a week time/ongoing monitoring at your PCP office upon discharge. Coordinate with your PCP office to set up the test. Also recommend that you get weekly EKG while on ciprofloxacin to monitor QTc. Coordinate with your PCP office to set up the test. Take your medications as prescribed. Please make sure that you are able to get your medications today by calling your pharmacy before you leave the hospital so that your treatment continuity is not broken. Pending Studies at Discharge: Yes Stand-Alone Forms: [email or web address], Smoking Cessation Medications and DC Order Prescriptions: New nicotine 7 mg/24 hr Patch 24 Hour 1 patch transdermal QAM 28 Days Qty: 28 0RF guaifenesin [Mucinex] 600 mg Tablet Extended Release 12hr 1,200 mg PO Q12 5 Days Qty: 20 0RF potassium chloride 20 mEq tablet extended release 20 meq PO DAILY Qty: 30 0RF ciprofloxacin HCl 750 mg tablet 750 mg PO BID 12 Days Qty: 24 0RF Probiotic 3 billion cell capsule 3,000 mmu cells PO DAILY 14 Days Qty: 14 0RF Rx Instructions: administer with a meal Continued atorvastatin 20 mg tablet 20 mg PO DAILY montelukast 10 mg tablet 10 mg PO QAM fluticasone propionate 50 mcg/actuation spray,suspension 2 spray INTRANASAL QAM metformin 500 mg tablet extended release 24 hr 1,000 mg PO BID Trelegy Ellipta 200-62.5-25 mcg blister with device 1 inh INHALATION QPM ipratropium-albuterol 0.5 mg-3 mg(2.5 mg base)/3 mL solution for nebulization 3 ml NEB Q6H PRN (Reason: Shortness Of Breath Or Wheezing) mirtazapine 15 mg tablet 15 mg PO DAILY prochlorperazine maleate 10 mg tablet 10 mg PO Q6 PRN (Reason: Nausea) olanzapine 2.5 mg tablet 2.5 mg PO UD Rx Instructions: TAKE AT BEDTIME FOR 4 DAYS STARTING DAY 1 OF CHEMOTHERAPY FOR NAUSEA ondansetron 8 mg tablet,disintegrating 8 mg translingual Q8 PRN (Reason: Nausea And Vomiting) oxycodone 5 mg tablet 5 mg PO .EVERY 4-6 HOURS PRN (Reason: Pain) diltiazem HCl 180 mg capsule,extended release 24hr 180 mg PO QAM pantoprazole 40 mg tablet,delayed release (DR/EC) 40 mg PO AMHS ferrous sulfate [Feosol] 325 mg (65 mg iron) tablet 325 mg PO QAM albuterol sulfate 2.5 mg /3 mL (0.083 %) Solution For Nebulization 2.5 mg INHALATION Q6H PRN (Reason: Wheezing) acetaminophen 650 mg Tablet Extended Release 650 mg PO Q8H PRN (Reason: Pain) albuterol sulfate 90 mcg/actuation Hfa Aerosol Inhaler 2 puff INHALATION Q4H PRN (Reason: Wheezing) dapagliflozin propanediol [Farxiga] 10 mg Tablet 10 mg PO QAM polyethylene glycol 3350 [Miralax] 17 gram Powder In Packet 17 g PO DAILY Qty: 100 0RF benzonatate 100 mg Capsule 100 mg PO Q6H PRN (Reason: cough) Qty: 30 0RF Discontinued cefdinir 300 mg capsule 300 mg PO BID 7 Days Qty: 14 0RF lisinopril 5 mg tablet 5 mg PO DAILY Rx Instructions: PER EXT MED HX, NOT ON FILE FILLED. Discharge Orders: Discharge Order (Routine); Ordered 07/29/24 Ordered By: Barbie Flores/Other Patient Handouts: UTIs Admission Data Admit Date/Time: 07/26/24 16:45 Attending Provider: Barbie Haider Admit Provider: Kostas Montes Primary Care Provider: Kandace Braxton Other Providers: Kostas Montes; Marcio Goodman; Parvez Romero; Dennis Matta I.; James Maddox II; Sanjuana Mckenzie; Marshall Segal; Raffi Cabello; Jenni Barrios; Austin Porter; [facility] Other Interventions: Discharge Summary Assessment (RN) Last Done: 07/29/24 10:20
== END 2024-07-29 13:01 | disposition home health service (06) | DRG 872 ==
LOC: ED 14:39 → 3E 16:45 → SUATTDRO 16:45 → 3E 17:48